=== PATIENT | female | born 1935 | race Caucasian/White ===

== ENCOUNTER → 2016-11-14 | Outpatient (CLI) | payer BC ==
[~2016-11-14] MED LIST: ASPI81TA28 PO; ATV5X PO; EFFSR75 PO; ESZO1TAB21 PO; GLC500 PO; LISI-789 PO; NRN100 PO; OMEP20CA9 PO; SIMV-151 PO; VENL-273 PO
[2016-11-14 10:27] LABS: ALT/SGPT 32 U/L (12-78); AST/SGOT 32 U/L (15-37); BLOOD UREA NITROGEN 21 mg/dl (7-18); BUN/CREATININE RATIO 26.4 (10-20); CALCIUM 8.8 mg/dl (8.5-10.1); CARBON DIOXIDE 31 mmol/L (21-32); CHLORIDE 106 mmol/L (98-107); CREATININE 0.81 mg/dl (0.60-1.20); GLUCOSE 127 mg/dl (70-99); POTASSIUM 4.1 mmol/L (3.5-5.1); SODIUM 140 mmol/L (136-145)
[2016-11-14 10:30] LABS: CHOLESTEROL 173 mg/dl (0-200); CHOLESTEROL/HDL RATIO 2.7; HDL CHOLESTEROL 63 mg/dl; LDL CHOLESTEROL CALCULATED 71 mg/dl; TRIGLYCERIDES 193 mg/dl (0-150); VERY LOW DENSITY LIPOPROT CALC 39 mg/dl
[2016-11-14 10:42] LABS: ESTIMATED AVERAGE GLUCOSE 134 mg/dl; HA1C FLAG Normal (Normal)
== END | disposition home or self-care (01) ==
LOC: C.LAB1850 09:13
PROVIDERS: ATTEND Internal Medicine
DX: E78.5 Hyperlipidemia, unspecified (principal); E11.9 Type 2 diabetes mellitus without complications

== ENCOUNTER → 2017-02-13 | Outpatient (CLI) | payer BC ==
[2017-02-13 10:13] LABS: ESTIMATED AVERAGE GLUCOSE 137 mg/dl; HA1C FLAG Normal (Normal)
[2017-02-13 10:16] LABS: ALT/SGPT 35 U/L (12-78); AST/SGOT 28 U/L (15-37); BLOOD UREA NITROGEN 18 mg/dl (7-18); BUN/CREATININE RATIO 19.4 (10-20); CARBON DIOXIDE 30 mmol/L (21-32); CHLORIDE 107 mmol/L (98-107); CHOLESTEROL 162 mg/dl (0-200); CREATININE 0.93 mg/dl (0.60-1.20); GLUCOSE 115 mg/dl (70-99); SODIUM 143 mmol/L (136-145); TRIGLYCERIDES 96 mg/dl (0-150); VERY LOW DENSITY LIPOPROT CALC 19 mg/dl
[2017-02-13 10:19] LABS: ALKALINE PHOSPHATASE 93 U/L (45-117); CHOLESTEROL/HDL RATIO 2.5; HDL CHOLESTEROL 66 mg/dl; LDL CHOLESTEROL CALCULATED 77 mg/dl
[2017-02-13 10:20] LABS: CALCIUM 9.5 mg/dl (8.5-10.1)
== END | disposition home or self-care (01) ==
LOC: C.LAB1850 08:21
PROVIDERS: ATTEND Internal Medicine
DX: E78.5 Hyperlipidemia, unspecified (principal); E11.9 Type 2 diabetes mellitus without complications; I10 Essential (primary) hypertension

== ENCOUNTER 2017-05-19 14:22 | Emergency (ER) | payer BC ==
[~2017-05-19] VITALS: Ht 154.9 cm; Wt 60.9 kg
[~2017-05-19 14:22] MED LIST changes: -ASPI81TA28 PO; -ATV5X PO; -EFFSR75 PO; -ESZO1TAB21 PO; -GLC500 PO; -LISI-789 PO; -NRN100 PO; -OMEP20CA9 PO; -SIMV-151 PO
[2017-05-19 14:34] VITALS: TEMP 37; Ht 154.9 cm; Wt 60.9 kg
[2017-05-19] MEDS ORDERED: GLC500 PO ×2 (15:14→20:18)
[2017-05-19] MEDS ORDERED: EFFSR75 PO (15:14)
[2017-05-19] MEDS ORDERED: ASPI81TA28 PO (15:14)
--- NOTE | 2017-05-19 15:24 | DIAGNOSTIC IMAGING REPORT ---
CT HEAD WITHOUT CONTRAST (CT) CLINICAL HISTORY: Closed head injury. Bilateral periorbital ecchymosis. COMPARISON STUDY: 05/01/2015 TECHNIQUE: Axial CT of the brain is performed from the vertex to the skull base. IV contrast was not administered for this examination. A dose lowering technique was utilized adhering to the principles of ALARA. CT DOSE: FINDINGS: No intra or extra-axial mass lesions are visualized. There is no CT evidence of acute cortical infarction. There is no evidence of midline shift. There is no acute hemorrhage. No calvarial fractures are visualized. There are patchy white matter hypodensities likely on a small vessel basis. There is no evidence of pathologic ventricular dilatation. There is no evidence of acute sinusitis. There is a frontal scalp hematoma. IMPRESSION: 1. Frontal scalp hematoma 2. No acute intracranial findings. Electronically signed by: Benjamin King M.D. 05/19/2017 3:23 PM Dictated Date/Time: 05/19/2017 3:22 PM
--- NOTE | 2017-05-19 15:27 | DIAGNOSTIC IMAGING REPORT ---
CT FACIAL BONES-MXILLOFAC WITHOUT CT DOSE: 754.72 mGy.cm CLINICAL HISTORY: Facial pain status post head trauma. Bilateral periorbital ecchymosis. COMPARISON STUDY: No previous studies for comparison. TECHNIQUE: Helical images were acquired in the transverse plane. The study was reviewed and analyzed on the independent 3-D workstation. A dose lowering technique was utilized adhering to the principles of ALARA. The pterygoid plates appear intact. The zygomatic arches appear intact. The globes appear intact. There is no evidence of orbital emphysema. The orbital bonilla and floor appear intact. The mandibular condyles appear intact. There is a frontal scalp hematoma. IMPRESSION: No facial fractures identified. Electronically signed by: Benjamin King M.D. 05/19/2017 3:25 PM Dictated Date/Time: 05/19/2017 3:23 PM
--- NOTE | 2017-05-19 15:41 | EMERGENCY ROOM VISIT NOTE ---
ED Visit Note First contact with patient: 14:36 The patient was seen and examined with Johnnie Hutchison PA-C. I agree with the history, physical and findings. Please see the note for disposition and details.
[2017-05-19 16:01] VITALS: BP 139/98; PULSE 86; O2SAT 93
--- NOTE | 2017-05-19 17:00 | EMERGENCY ROOM VISIT NOTE ---
History First contact with patient: 14:36 Chief Complaint: FALL Stated Complaint: FALL, HIT HEAD/FOREHEAD History of Present Illness The patient is a 81 year old female who presents to the Emergency Room with complaints of bruising and swelling around her eyes and forehead region. The patient reports that she fell around 4 AM yesterday morning when her cats got into a fight in her bedroom, and she tried to get up to break up the fight. She reportedly tripped and fell onto her face. She denies any loss of consciousness. She denies any significant headache or neck pain. She denies any other extremity injuries. The patient has had a concussion in the past, but denies any history of intracranial bleed. The patient does take a baby aspirin daily. She did call her family doctor's office, and was instructed to come to the emergency department for further evaluation. The patient rates her overall discomfort a 2 out of 10 on my exam. Tetanus immunization is up-to- date. Review of Systems 10 system review was performed and was negative except for pertinent positives and negatives as indicated in history of present illness Past Medical/Surgical History Medical Problems: (1) Acid reflux (2) Depressed (3) Diabetes (4) Hyperlipidemia (5) Hypertension (6) Shingles (7) Skin problems (8) Stomach problems Family History Cancer Diabetes mellitus FH: gallbladder disease Hypertension Social History Smoking Status: Never Smoker Alcohol Use: none Drug Use: none Marital Status: Housing Status: lives alone Occupation Status: retired Current/Historical Medications Scheduled Aspirin (Aspirin Ec), 81 MG PO DAILY Gabapentin (Gabapentin), 100 MG PO BID Lisinopril (Zestril), 2.5 MG PO DAILY Metformin HCl (Metformin HCl), 500 MG PO QAM Metformin HCl (Metformin HCl), 1,000 MG PO QPM Simvastatin (Simvastatin), 20 MG PO DAILY Venlafaxine Hcl (Effexor Extended Rel), 75 MG PO DAILY Scheduled PRN Eszopiclone (Eszopiclone), 3 MG PO HS PRN for Insomnia Lorazepam (Lorazepam), 0.5 MG PO BID PRN for Anxiety Omeprazole (Prilosec), 20 MG PO BID PRN for Acid Reflux Allergies Coded Allergies: No Known Allergies (Unverified , 05/01/15) Physical Exam Vital Signs Date Time Temp Pulse Resp B/P (MAP) Pulse Ox O2 Delivery O2 Flow Rate FiO2 8/28/17 16:01 86 16 139/98 93 05/19/17 14:34 37.0 107 18 146/69 95 Room Air Pain Rating (0-10): 4.0 Physical Exam CONSTITUTIONAL: Healthy and well nourished. Alert and oriented X 3 with positive affect. GCS 15. Patient does not appear in any acute distress. HEENT: The patient has a small left-sided forehead hematoma without laceration or abrasions. She otherwise has pronounced periorbital ecchymosis with soft tissue edema. Pupils equal, round and reactive. No subconjunctival hemorrhage noted. EOMs are intact without evidence for entrapment. No evidence for hemotympanum. OROPHARYNX: No intraoral trauma noted. NECK: The patient exhibits full active range of motion without discomfort. She only has minimal discomfort to palpation of the left sided cervical musculature without focal tenderness to the central cervical spine. RESPIRATORY: Clear to auscultation bilaterally with no wheezing, crackles, rhonchi or stridor. CARDIOVASCULAR: Regular rate and rhythm with no murmurs, rubs or gallops. GASTROINTESTINAL: Bowel sounds present in all quadrants. Soft and nontender to palpation. MUSCULOSKELETAL: Full range of motion of all joints without discomfort. 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 Patient is able straight leg raise bilaterally. No other trauma is noted to the upper or lower extremities. Distal pulses are intact. INTEGUMENTARY: No rash or other significant dermatologic conditions noted. NEUROLOGIC: Cranial nerves II-XII grossly intact. No focal neurologic deficits noted. Upper and lower extremities are sensory intact. Medical Decision & Procedures ER Provider Diagnostic Interpretation: Noncontrast CT of the head and facial bones does not show any acute intracranial bleed or facial bone fractures. Radiologist reports were reviewed. ED Course Patient history and physical exam were performed. Nurse's notes were reviewed. Vital signs were reviewed and were normal. The patient refused any analgesics. Noncontrast CT of the head and facial bones were normal. The patient was advised of her normal CT studies. She was also seen and examined by Dr. Randall, ED attending physician, who suggested an Jason wrap had been to help prevent any further bleeding in the forehead. The patient was encouraged to continue intermittently applying cool compresses to the forehead and eyes. Ibuprofen or Tylenol as needed for pain. She was encouraged to follow-up with her PCP as needed for management, and return to the emergency department for any developing significant headache, nausea, coordination problems or other concerning symptoms. The patient was happy with plan of care, voiced understanding of all discharge instructions, and denied any significant pain at the time of discharge. Medical Decision Impression Primary Impression: Traumatic hematoma of forehead Additional Impressions: Fall from other slipping, tripping, or stumbling Periorbital hematoma of both eyes Departure Information Dispostion Home / Self-Care Condition GOOD Forms HOME CARE DOCUMENTATION FORM, IMPORTANT VISIT INFORMATION Patient Instructions [employer] Additional Instructions Leave Jason wrap in place for 12-24 hours to help stop possible bleeding in the forehead. Continue to intermittently apply ice to forehead and around the eyes for swelling. Keep head elevated for additional swelling relief. Tylenol 500-1000 mg every 6-8 hours. Do not take more than Tylenol 1000 mg in a 24-hour period. You may also occasionally had Aleve or ibuprofen for additional pain relief if needed. Follow-up with your family doctor as needed for further management. Return to the emergency department for any progressively worsening pain, persistent vomiting, coordination problems or other concerning symptoms. Problem Qualifiers Primary Impression: Traumatic hematoma of forehead Encounter type: initial encounter Qualified Codes: S00.83XA - Contusion of other part of head, initial encounter
[2017-05-19] MEDS ORDERED: LISI-789 PO (20:18)
[2017-05-19] MEDS ORDERED: ATV5X PO (20:18)
[2017-05-19] MEDS ORDERED: OMEP20CA9 PO (20:18)
[2017-05-19] MEDS ORDERED: SIMV-151 PO (20:18)
[2017-05-19] MEDS ORDERED: NRN100 PO (20:18)
[2017-05-19] MEDS ORDERED: ESZO1TAB21 PO (20:18)
== END 2017-05-19 16:02 | disposition home or self-care (01) ==
LOC: C.EDB 14:24 → C.EDD 16:02
DX: S00.83XA Contusion of other part of head, initial encounter (principal); W18.09XA Striking against other object with subsequent fall, initial encounter; Y92.003 Bedroom of unspecified non-institutional (private) residence as the place of occurrence of the external cause; Z79.82 Long term (current) use of aspirin; K21.9 Gastro-esophageal reflux disease without esophagitis; F32.9 Major depressive disorder, single episode, unspecified; E11.9 Type 2 diabetes mellitus without complications; E78.5 Hyperlipidemia, unspecified; I10 Essential (primary) hypertension; Z80.9 Family history of malignant neoplasm, unspecified; Z83.3 Family history of diabetes mellitus; Z82.49 Family history of ischemic heart disease and other diseases of the circulatory system; Z79.899 Other long term (current) drug therapy

== ENCOUNTER → 2017-05-29 | Outpatient (CLI) | payer BC ==
[~2017-05-29] MED LIST changes: +ASPI81TA28 PO; +ATV5X PO; +EFFSR75 PO; +ESZO1TAB21 PO; +GLC500 PO; +LISI-789 PO; +NRN100 PO; +OMEP20CA9 PO; +SIMV-151 PO; -VENL-273 PO
--- NOTE | 2017-05-29 12:52 | DIAGNOSTIC IMAGING REPORT ---
LEFT ANKLE 3 VIEWS CLINICAL HISTORY: Left leg injury. Hematoma. FINDINGS: 3 views of the left ankle are obtained. No prior studies are available for comparison at the time of dictation. The skeletal structures are osteopenic. No fracture is seen. The ankle mortise is intact. There is no joint effusion. A large plantar calcaneal enthesophyte is observed. Mild soft tissue swelling is present in the calf. IMPRESSION: Osteopenia with no radiographic evidence of left ankle fracture. Electronically signed by: Anthony Espino M.D. 05/29/2017 12:51 PM Dictated Date/Time: 05/29/2017 12:49 PM
--- NOTE | 2017-05-29 12:52 | DIAGNOSTIC IMAGING REPORT ---
LEFT TIBIA/FIBULA 2 VIEWS ROUTINE CLINICAL HISTORY: M79.605 Left leg [id number] COMPARISON: 09/02/2016 DISCUSSION: No acute abnormality of the tibia or fibula. Mild deformity of the patella secondary to an old healed fracture. There is no evidence for soft tissue swelling. IMPRESSION: No acute process. The above report was generated using voice recognition software. It may contain grammatical, syntax or spelling errors. Electronically signed by: Derrick Brumfield M.D. 05/29/2017 12:51 PM Dictated Date/Time: 05/29/2017 12:49 PM
== END | disposition home or self-care (01) ==
LOC: C.RAD1850 12:37
PROVIDERS: ATTEND Internal Medicine
DX: M79.605 Pain in left leg (principal); S80.12XA Contusion of left lower leg, initial encounter; X58.XXXA Exposure to other specified factors, initial encounter

== ENCOUNTER → 2017-06-09 | Outpatient (CLI) | payer BC ==
--- NOTE | 2017-06-09 16:08 | MAMMOGRAPHY REPORT ---
BILATERAL DIGITAL SCREENING MAMMOGRAM WITH CAD: 06/09/2017 CLINICAL HISTORY: Routine screening. TECHNIQUE: Bilateral CC and MLO views were obtained. Current study was also evaluated with a Compute r Aided Detection (CAD) system. COMPARISON: Comparison is made to exams dated: 06/06/2016 mammogram, 06/05/2015 mammogram, 06/02/2014 m ammogram, 05/31/2013 mammogram, 05/06/2012 mammogram, and 04/11/2011 mammogram - [facility]ter. BREAST COMPOSITION: The tissue of both breasts is almost entirely fatty. FINDINGS: No suspicious mass, architectural distortion or cluster of microcalcifications is seen. IMPRESSION: ACR BI-RADS CATEGORY 1: NEGATIVE There is no mammographic evidence of malignancy. A 1 year screening mammogram is recommended. The pa tient will receive written notification of the results. Approximately 10% of breast cancers are not detected with mammography. A negative mammographic report should not delay biopsy if a clinically suggestive mass is present. Sheila Shaw M.D. ay/:06/09/2017 14:43:37 [employer]: [place] SUE(R)(M), [facility] letter sent: Normal 1/2 BI-RADS Code: ACR BI-RADS Category 1: Negative
== END | disposition home or self-care (01) ==
LOC: C.MAMM 14:03
PROVIDERS: ATTEND Internal Medicine
DX: Z12.31 Encounter for screening mammogram for malignant neoplasm of breast (principal)

== ENCOUNTER → 2017-08-22 | Outpatient (CLI) | payer BC ==
[2017-08-22 09:34] LABS: BASO % 1.8 %; BASO ABS # 0.09 K/uL (0-0.2); COMPLETE YES; EOS % 3.2 %; HEMATOCRIT 40.5 % (37-47); IG% 0.2 %; LYMPH % 43.2 %; LYMPH ABS # 2.19 K/uL (1.2-3.4); MEAN CELL VOLUME 93.5 fL (80-100); MEAN CORPUSCULAR HEMOGLOBIN 30.9 pg (25-34); MEAN CORPUSCULAR HGB CONC 33.1 g/dl (32-36); MEAN PLATELET VOLUME 10.2 fL (7.4-10.4); MONO % 9.7 %; NEUT % 41.9 %; PLATELET COUNT 246 K/uL (130-400); RED BLOOD COUNT 4.33 M/uL (4.2-5.4); WHITE BLOOD COUNT 5.07 K/uL (4.8-10.8)
[2017-08-22 09:50] LABS: ESTIMATED AVERAGE GLUCOSE 131 mg/dl; HA1C FLAG Normal (Normal)
[2017-08-22 10:26] LABS: BLOOD UREA NITROGEN 18 mg/dl (7-18); BUN/CREATININE RATIO 23.6 (10-20); CALCIUM 8.9 mg/dl (8.5-10.1); CARBON DIOXIDE 29 mmol/L (21-32); CHLORIDE 107 mmol/L (98-107); CREATININE 0.76 mg/dl (0.60-1.20); GLUCOSE 126 mg/dl (70-99); POTASSIUM 4.2 mmol/L (3.5-5.1); SODIUM 140 mmol/L (136-145)
[2017-08-22 10:31] LABS: CHOLESTEROL 158 mg/dl (0-200); CHOLESTEROL/HDL RATIO 2.4; HDL CHOLESTEROL 65 mg/dl; LDL CHOLESTEROL CALCULATED 62 mg/dl; TRIGLYCERIDES 154 mg/dl (0-150); VERY LOW DENSITY LIPOPROT CALC 31 mg/dl
[2017-08-22 10:41] LABS: RATIO 12.7 mcg/mg (0-30.0)
== END | disposition home or self-care (01) ==
LOC: C.LAB1850 08:30
PROVIDERS: ATTEND Internal Medicine
DX: E11.9 Type 2 diabetes mellitus without complications (principal); E78.5 Hyperlipidemia, unspecified; S00.03XA Contusion of scalp, initial encounter; X58.XXXA Exposure to other specified factors, initial encounter

== ENCOUNTER → 2017-11-20 | Outpatient (CLI) | payer BC | END | disposition home or self-care (01) | LOC: C.LAB1850 13:19 | PROVIDERS: ATTEND Physician Assistant | DX: R25.1 Tremor, unspecified (principal) ==

== ENCOUNTER → 2017-12-09 | Outpatient (CLI) | payer BC ==
--- NOTE | 2017-12-09 16:06 | DIAGNOSTIC IMAGING REPORT ---
L KNEE 1 OR 2 VIEWS ROUTINE HISTORY: 82 years-old Female R26.9 Gait [id number] Common peroneal neuropathy of left COMPARISON: Left tibia and fibula radiographs 05/29/2017 TECHNIQUE: 2 views of the left knee FINDINGS: There is a suggested healed remote fracture of the superior patella, unchanged. Small left knee joint effusion. The bones appear mildly demineralized. Mild tricompartmental osteoarthritis. Soft tissues are unremarkable without opaque foreign body. IMPRESSION: Small joint effusion without acute fracture. The above report was generated using voice recognition software. It may contain grammatical, syntax or spelling errors. Electronically signed by: Justino Lai M.D. 12/09/2017 4:05 PM Dictated Date/Time: 12/09/2017 4:03 PM
== END | disposition home or self-care (01) ==
LOC: C.RAD1850 15:53
PROVIDERS: ATTEND Physician Assistant
DX: R26.9 Unspecified abnormalities of gait and mobility (principal); G57.02 Lesion of sciatic nerve, left lower limb; M25.462 Effusion, left knee

== ENCOUNTER 2023-09-11 16:51 | Inpatient (IN) ==
--- NOTE | 2023-09-11 17:10 | ED Triage Note ---
Date of Service September 11, 2023 Provider in Triage Author: Gisela Armenta History of Present Illness This patient was briefly evaluated while in triage. An abbreviated physical exam was performed. This patient is a 87-year-old Female who presents to the ED for evaluation stomach cramps started 0600 yesterday thought she was constipated had a loose BM with blood x 1 weakness, sweats pain persists, but better than it was yesterday Physical Exam GENERAL: NAD CARDIOVASCULAR: RRR RESPIRATORY: CTA ABDOMEN: BS x 4. Diffusely TTP throughout. Initial orders for labs and / or imaging were placed and patient was placed in the waiting area until a bed is available. Please see further documentation for the full ED course.
[2023-09-11 18:08] LABS: Basophils # (auto) 0.06 K/uL (0.00-0.20); Basophils % (auto) 0.5 %; Eosinophils % (auto) 0.8 %; Hematocrit (blood only) 43.6 % (37.0-47.0); Immature Granulocytes # (auto) 0.05 K/uL (0.01-0.20); Immature Granulocytes % (auto) 0.4 %; Lymphocytes # (auto) 1.28 K/uL (1.20-3.40); Lymphocytes % (auto) 10.8 %; Mean Corpuscular Hemoglobin 29.2 pg (25.0-34.0); Mean Corpuscular Hgb Conc 32.1 g/dL (32.0-36.0); Mean Corpuscular Volume 90.8 fL (80.0-100.0); Mean Platelet Volume 9.9 fL (9.4-12.4); Monocytes # (auto) 0.75 K/uL (0.11-0.59); Monocytes % (auto) 6.3 %; Neutrophils # (auto) 9.66 K/uL (1.40-6.50); Neutrophils % (auto) 81.2 %; Platelet Count 241 K/uL (130-400); RDW Coefficient of Variation 13.8 % (11.5-14.5); RDW Standard Deviation 46.2 fL (36.4-46.3)
[2023-09-11 18:20] LABS: Albumin Globulin Ratio 1.5 (0.9-2); Bilirubin,Total 0.4 mg/dl (0.2-1.0); Calcium 9.1 mg/dl (8.6-10.3); Creatinine Clr Calc Pharmacy 40.8 ml/min; Est GFR (African American) 82.9 ml/min; Est GFR (Non-African American) 71.5 ml/min; Globulin 2.6 gm/dl (2.5-4.0); Potassium 4.5 mmol/L (3.5-5.1); Total Protein 6.6 gm/dl (6.0-8.3)
[2023-09-11 18:32] LABS: Prothrombin Time 10.9 Seconds (9.0-12.0)
[2023-09-11] MEDS ORDERED: OPTIRAY 320 500ml IV ONE (20:07)
--- NOTE | 2023-09-11 20:56 | CT Scan Report ---
Exam(s): CT ABDOMEN + PELVIS With Contrast IV Amt: 92 ml opti 320 EXAM: CT Abdomen and Pelvis With Intravenous Contrast CLINICAL HISTORY: Pain and bloody stool. TECHNIQUE: Axial computed tomography images of the abdomen and pelvis with intravenous contrast. Automated exposure control was utilized for the study. A dose lowering technique was utilized adhering to the principles of ALARA. CONTRAST: Patient received 92 ml opti 320 of IV contrast COMPARISON: Abdominal ultrasound 07/24/2017. FINDINGS: Lung bases: Unremarkable. No mass. No consolidation. ABDOMEN: Liver: Unremarkable. No mass. Gallbladder and bile ducts: Unremarkable. No calcified stones. No ductal dilation. Pancreas: Unremarkable. No mass. No ductal dilation. Spleen: Unremarkable. No splenomegaly. Adrenals: Unremarkable. No mass. Kidneys and ureters: Unremarkable. No solid mass. No hydronephrosis. Stomach and bowel: Marked thickening of the wall of the descending colon and to a lesser degree transverse and sigmoid colon. Question a small amount of blush of contrast at the hepatic flexure versus enhancement of the mucosa. No obstruction. PELVIS: Appendix: No findings to suggest acute appendicitis. Bladder: Unremarkable. No mass. Reproductive: Unremarkable as visualized. ABDOMEN and PELVIS: Intraperitoneal space: Unremarkable. No free air. No significant fluid collection. Bones/joints: There are degenerative changes of the spine. No acute fracture. No dislocation. Soft tissues: Unremarkable. Vasculature: Mild atherosclerosis. No abdominal aortic aneurysm. Lymph nodes: Unremarkable. No enlarged lymph nodes. IMPRESSION: Marked thickening of the wall of the descending colon and to a lesser degree transverse and sigmoid colon. Question a small amount of blush of contrast at the hepatic flexure versus enhancement of the mucosa. This could relate to nonspecific colitis with possible active GI bleeding. Communications: Verify Receipt Electronically signed by: Madyson Jacome MD 09/11/23 20:55 PM
--- NOTE | 2023-09-11 21:03 | Emergency Department Note ---
Impression & Plan Acute GI bleeding, Abdominal pain ED Provider Note NAME: KAREN LAU AGE: 87 SEX: F : 1935 ARRIVES VIA: Walk-In INFORMANT: Patient ED PROVIDER(S): Lennox Velasco DO CHIEF COMPLAINT: Abdominal pain HPI: Patient is an 87-year-old female who presents to the ER with past medical history of hypertension, hyperlipidemia, anxiety and diabetes for right lower quadrant abdominal pain which started this morning. Has a history of a C- section and previous appendectomy. She notes with this she has noticed some bright red blood per rectum. She denies any headache or change in vision. No chest pain or shortness of breath. No nausea or vomiting. No black or dark tarry stools. No blood thinners. No other exacerbating or remitting factors. ADDITIONAL HISTORY OBTAINED: Per HPI Chronic Medical/Social Conditions Affecting Care: Per HPI PAST MEDICAL HISTORY:See Below PAST SURGICAL HISTORY:See Below FAMILY HISTORY:See Below SOCIAL HISTORY:See Below HOME MEDICATIONS:See Below ALLERGIES:See Below VITALS:See Below PHYSICAL EXAMINATION: GENERAL: Sitting up in bed, alert, well appearing, well nourished, no distress, non-toxic EYE EXAM: normal conjunctiva. OROPHARYNX:mucous membranes are moist NECK: supple, no nuchal rigidity, no adenopathy, non-tender LUNGS: Clear to auscultation. Normal chest wall mechanics HEART: no murmurs, S1 normal and S2 normal ABDOMEN: abdomen soft, non-tender, normo-active bowel sounds, no masses, no rebound or guarding. UPPER EXTREMITIES: upper extremities are grossly normal. LOWER EXTREMITIES: No pitting edema. NEURO EXAM: Normal sensorium, cranial nerves II-XII grossly intact, normal speech, no gross weakness of arms, no gross weakness of legs. MEDICAL DECISION MAKING: Patient is a 87-year-old female who presents to the ER for the above-stated complaint. IV was established blood was obtained. Labs show mild leukocytosis 11.9 thousand. No significant anemia. INR unremarkable. BMP on LFTs bilirubin was unremarkable. Lipase was normal. CT abdomen pelvis shows questionable blush versus thickening of the bowel wall. This was discussed with Dr. [place] on-call for gastroenterology. He agrees with observation overnight his vitals are stable and hemoglobin is 14. Patient has a complete benign abdominal exam discussed case with [facility] hospitalist BEN for further evaluation management and treatment under Dr. Ravi. Patient has had no GI bleeding since being in the ER. Consults/Care Managements Discussions: Per MDM Triage Nursing notes reviewed. Limited review of prior medical records performed Vital Signs: reviewed and remarkable for HTN Differential diagnosis: Differential diagnosis includes etiologies such as diverticulitis, diverticulosis, AVM, coagulopathy, colitis, inflammatory bowel disease, malignancy, Loni-Chapa tear, esophagitis, peptic ulcer disease, variceal bleed, gastritis, epistaxis, fissure, hemorrhoids, as well as others were entertained. ER treatment provided: See below Diagnostics interpreted by me include EKG and cardiac monitoring as listed below: -Cardiac Monitoring: An order was placed for continuous cardiac monitoring. The monitor shows a rate of 90 with sinus rhythm. -ECG: none -Laboratory studies:Interpreted by me as stated above in MDM and shown below. 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 Essential tremor Gait disturbance Osteoporosis Type 2 diabetes mellitus Vitamin D deficiency Concussion (2014) Herpes zoster (2013) Surgical History S/P dilation and curettage S/P section S/P appendectomy History of oral surgery Family History Father Colorectal cancer Diabetes Mother Hypertension Sister Hypertension Stroke Brother Stroke Social History Smoking Status: Never smoker Hx Alcohol Use: No Hx Substance Use: No Preferred Language: Singaporean Communication Ability: Effective Visual Impairment: No Limitations Hearing Ability: Normal marital status: / current occupational status: retired Feels Safe at Home: Yes Physical Activity Frequency: Does not Exercise Seatbelt Use: always Allergies Allergies Allergy/AdvReac Type Severity Reaction Status Date / Time No Known Allergies Allergy Verified 09/11/23 19:50 Home Meds Home Medications Medication Instructions Recorded Confirmed blood-glucose meter (Accu-Chek #1 ea 07/15/19 08/29/23 Rafaela Plus Meter) venlafaxine 150 mg 150 mg PO DAILY 04/03/22 09/11/23 capsule,extended release 24 hr gabapentin 100 mg capsule 100 mg PO TID 08/29/23 09/11/23 Immune Health Support 1 dose PO DAILY 09/11/23 09/11/23 Lactobacil.acidophilus-Bifido.animalis 1 cap PO DAILY 09/11/23 09/11/23 5 billion cell sprinkle capsule (Probiotic) acetaminophen 500 mg tablet 1,000 mg PO DIRECTED PRN Pain 09/11/23 09/11/23 (Tylenol Extra Strength) eszopiclone 1 mg tablet 0.5 - 1 mg PO HS PRN Insomnia 09/11/23 09/11/23 lorazepam 0.5 mg tablet 0.25 - 0.5 mg PO BID PRN Anxiety 09/11/23 09/11/23 multivitamin 1 tab PO DAILY 09/11/23 09/11/23 omeprazole 20 mg capsule,delayed 20 mg PO DAILY PRN 09/11/23 09/11/23 release HEARTBURN/INDIGESTION Previous Rx's Medication Instructions Recorded blood sugar diagnostic (Accu-Chek #200 ea 08/21/22 Rafaela Plus test strips) lancets (Accu-Chek Fastclix Lancet #300 ea 08/21/22 Drum) simvastatin 20 mg tablet 20 mg PO DAILY #90 tabs 08/21/22 metformin 500 mg tablet 500 mg PO .COMPLEX #270 tabs 08/11/23 lisinopril 2.5 mg tablet 2.5 mg PO DAILY #90 tabs 09/08/23 Results & Data (ED) Vital Signs Vital Signs - 24 hr 09/11/23 17:09 09/11/23 19:01 09/11/23 19:02 Temperature 36.5 C Temperature Source Temporal Artery Scan Pulse Rate 107 H 104 H 101 H Pulse Rate from SpO2 Sensor 101 H Pulse Rhythm Regular Pulse Strength Normal Respiratory Rate 18 16 Respiratory Effort / Characteristics Non-Labored Spontaneous Respiratory Depth Normal Respiratory Pattern Regular Blood Pressure 159/70 H Blood Pressure Mean 99 Blood Pressure Position Sitting Pulse Oximetry 98 98 Oxygen Delivery Method Room Air Sepsis Recent Fever Within 48 Hours No Sepsis New/Unexplained Change in Mental Status No Sepsis Action Taken by Nursing No Action Required 09/11/23 19:10 09/11/23 19:20 09/11/23 19:30 Temperature Temperature Source Pulse Rate 94 H 92 H 94 H Pulse Rate from SpO2 Sensor 94 H 92 H 94 H Pulse Rhythm Pulse Strength Respiratory Rate 15 15 16 Respiratory Effort / Characteristics Respiratory Depth Respiratory Pattern Blood Pressure Blood Pressure Mean Blood Pressure Position Pulse Oximetry 97 96 97 Oxygen Delivery Method Sepsis Recent Fever Within 48 Hours Sepsis New/Unexplained Change in Mental Status Sepsis Action Taken by Nursing 09/11/23 19:30 09/11/23 19:40 09/11/23 19:43 Temperature Temperature Source Pulse Rate 90 Pulse Rate from SpO2 Sensor 90 Pulse Rhythm Pulse Strength Respiratory Rate 15 Respiratory Effort / Characteristics Respiratory Depth Respiratory Pattern Blood Pressure 157/78 H Blood Pressure Mean 121 Blood Pressure Position Pulse Oximetry 98 100 Oxygen Delivery Method Room Air Sepsis Recent Fever Within 48 Hours Sepsis New/Unexplained Change in Mental Status Sepsis Action Taken by Nursing 09/11/23 19:50 09/11/23 20:11 09/11/23 20:20 Temperature Temperature Source Pulse Rate 91 H 103 H 90 Pulse Rate from SpO2 Sensor 91 H 90 Pulse Rhythm Pulse Strength Respiratory Rate 18 13 16 Respiratory Effort / Characteristics Respiratory Depth Respiratory Pattern Blood Pressure Blood Pressure Mean Blood Pressure Position Pulse Oximetry 97 96 Oxygen Delivery Method Sepsis Recent Fever Within 48 Hours Sepsis New/Unexplained Change in Mental Status Sepsis Action Taken by Nursing 09/11/23 20:30 09/11/23 20:30 09/11/23 20:40 Temperature Temperature Source Pulse Rate 88 85 Pulse Rate from SpO2 Sensor 88 86 Pulse Rhythm Pulse Strength Respiratory Rate 16 17 Respiratory Effort / Characteristics Respiratory Depth Respiratory Pattern Blood Pressure 168/73 H Blood Pressure Mean 103 Blood Pressure Position Pulse Oximetry 96 95 Oxygen Delivery Method Sepsis Recent Fever Within 48 Hours Sepsis New/Unexplained Change in Mental Status Sepsis Action Taken by Nursing 09/11/23 20:50 09/11/23 21:00 09/11/23 21:00 Temperature Temperature Source Pulse Rate 86 88 Pulse Rate from SpO2 Sensor 87 91 H Pulse Rhythm Pulse Strength Respiratory Rate 20 16 Respiratory Effort / Characteristics Respiratory Depth Respiratory Pattern Blood Pressure 162/79 H Blood Pressure Mean 103 Blood Pressure Position Pulse Oximetry 95 94 Oxygen Delivery Method Room Air Sepsis Recent Fever Within 48 Hours Sepsis New/Unexplained Change in Mental Status Sepsis Action Taken by Nursing 09/11/23 21:10 09/11/23 21:20 09/11/23 21:30 Temperature Temperature Source Pulse Rate 88 89 93 H Pulse Rate from SpO2 Sensor 88 89 97 H Pulse Rhythm Pulse Strength Respiratory Rate 17 18 16 Respiratory Effort / Characteristics Respiratory Depth Respiratory Pattern Blood Pressure Blood Pressure Mean Blood Pressure Position Pulse Oximetry 94 94 98 Oxygen Delivery Method Sepsis Recent Fever Within 48 Hours Sepsis New/Unexplained Change in Mental Status Sepsis Action Taken by Nursing 09/11/23 21:30 09/11/23 21:40 09/11/23 21:50 Temperature Temperature Source Pulse Rate 93 H 91 H Pulse Rate from SpO2 Sensor 97 H 92 H Pulse Rhythm Pulse Strength Respiratory Rate 18 15 Respiratory Effort / Characteristics Respiratory Depth Respiratory Pattern Blood Pressure 164/91 H Blood Pressure Mean 134 Blood Pressure Position Pulse Oximetry 97 95 Oxygen Delivery Method Room Air Sepsis Recent Fever Within 48 Hours Sepsis New/Unexplained Change in Mental Status Sepsis Action Taken by Nursing 09/11/23 22:00 09/11/23 22:00 09/11/23 22:10 Temperature Temperature Source Pulse Rate 96 H 90 Pulse Rate from SpO2 Sensor 96 H 90 Pulse Rhythm Pulse Strength Respiratory Rate 20 16 Respiratory Effort / Characteristics Respiratory Depth Respiratory Pattern Blood Pressure 170/89 H Blood Pressure Mean 114 Blood Pressure Position Pulse Oximetry 93 94 Oxygen Delivery Method Sepsis Recent Fever Within 48 Hours Sepsis New/Unexplained Change in Mental Status Sepsis Action Taken by Nursing 09/11/23 22:20 09/11/23 22:30 09/11/23 22:30 Temperature Temperature Source Pulse Rate 93 H 97 H Pulse Rate from SpO2 Sensor 93 H 95 H Pulse Rhythm Pulse Strength Respiratory Rate 16 19 Respiratory Effort / Characteristics Respiratory Depth Respiratory Pattern Blood Pressure 151/88 H Blood Pressure Mean 126 Blood Pressure Position Pulse Oximetry 94 93 Oxygen Delivery Method Room Air Sepsis Recent Fever Within 48 Hours Sepsis New/Unexplained Change in Mental Status Sepsis Action Taken by Nursing 09/11/23 22:40 09/11/23 22:49 09/11/23 22:50 Temperature Temperature Source Pulse Rate 92 H 98 H 92 H Pulse Rate from SpO2 Sensor 92 H 93 H Pulse Rhythm Pulse Strength Respiratory Rate 22 24 Respiratory Effort / Characteristics Respiratory Depth Respiratory Pattern Blood Pressure Blood Pressure Mean Blood Pressure Position Pulse Oximetry 93 94 Oxygen Delivery Method Room Air Sepsis Recent Fever Within 48 Hours Sepsis New/Unexplained Change in Mental Status Sepsis Action Taken by Nursing Laboratory Data 09/11/23 17:46 09/11/23 17:46 Lab Results 09/11/23 Range/Units 17:46 WBC 11.90 H (4.8-10.8) K/ul RBC 4.80 (4.20-5.40) M/uL Hgb 14.0 (12.0-16.0) g/dl Hct 43.6 (37.0-47.0) % MCV 90.8 (80.0-100.0) fL MCH 29.2 (25.0-34.0) pg MCHC 32.1 (32.0-36.0) g/dL RDW Std Deviation 46.2 (36.4-46.3) fL RDW Coeff of Astrid 13.8 (11.5-14.5) % Plt Count 241 (130-400) K/uL MPV 9.9 (9.4-12.4) fL Immature Gran % (Auto) 0.4 % Neut % (Auto) 81.2 % Lymph % (Auto) 10.8 % [place] % (Auto) 6.3 % Eos % (Auto) 0.8 % Baso % (Auto) 0.5 % Neut # (Auto) 9.66 H (1.40-6.50) K/uL Lymph # (Auto) 1.28 (1.20-3.40) K/uL [place] # (Auto) 0.75 H (0.11-0.59) K/uL Eos # (Auto) 0.10 (0.00-0.50) K/uL Baso # (Auto) 0.06 (0.00-0.20) K/uL Immature Gran # (Auto) 0.05 (0.01-0.20) K/uL PT 10.9 (9.0-12.0) Seconds INR 1.0 (0.9-1.1) Sodium 139 (136-145) mmol/L Potassium 4.5 (3.5-5.1) mmol/L Chloride 105 (98-107) mmol/L Carbon Dioxide 29 (21-32) mmol/L Anion Gap 5 (3-11) BUN 19 (6-23) mg/dl Creatinine 0.76 (0.6-1.2) mg/dl Est Cr Clr Drug Dosing 40.8 ml/min Est GFR ( Amer) 82.9 ml/min Est GFR (Non-Af Amer) 71.5 ml/min BUN/Creatinine Ratio 25.0 H (10-20) Glucose 209 H (70-99(Fasting)) mg/dl Calcium 9.1 (8.6-10.3) mg/dl Total Bilirubin 0.4 (0.2-1.0) mg/dl AST 24 (13-39) U/L ALT 17 (7-52) U/L Alkaline Phosphatase 79 (34-104) U/L Total Protein 6.6 (6.0-8.3) gm/dl Albumin 4.0 (3.4-5.0) gm/dl Globulin 2.6 (2.5-4.0) gm/dl Albumin/Globulin Ratio 1.5 (0.9-2) Lipase 55 (11-82) U/L Administered Medications Pantoprazole Sodium 40 mg/ (Syringe) 10 mls @ 5 mls/min IV BID MULUGETA Stop: 10/11/23 22:14 Last Admin: 09/11/23 22:42 Dose: 5 mls/min Documented By: EARLENE Lactated Ringer's (Lr) 1,000 mls @ 100 mls/hr IV .Q10H MULUGETA Stop: 09/12/23 18:14 Last Admin: 09/11/23 22:23 Dose: 100 mls/hr Documented By: EARLENE Discontinued Medications Acetaminophen (Ofirmev) 1,000 mg in 100 mls @ 400 mls/hr IV NOW STA Stop: 09/11/23 22:19 Last Admin: 09/11/23 22:25 Dose: 400 mls/hr Documented By: EARLENE Ioversol (Optiray 320 500ml) 92 ml IV ONCE ONE Stop: 09/11/23 20:08 Last Admin: 09/11/23 20:07 Dose: 92 ml Documented By: FLIP Imaging Data Radiologist's Impression: Abdomen/Pelvis CT 09/11/23 17:11 CR Exam(s): CT ABDOMEN + PELVIS With Contrast IV Amt: 92 ml opti 320 EXAM: CT Abdomen and Pelvis With Intravenous Contrast CLINICAL HISTORY: Pain and bloody stool. TECHNIQUE: Axial computed tomography images of the abdomen and pelvis with intravenous contrast. Automated exposure control was utilized for the study. A dose lowering technique was utilized adhering to the principles of ALARA. CONTRAST: Patient received 92 ml opti 320 of IV contrast COMPARISON: Abdominal ultrasound 07/24/2017. FINDINGS: Lung bases: Unremarkable. No mass. No consolidation. ABDOMEN: Liver: Unremarkable. No mass. Gallbladder and bile ducts: Unremarkable. No calcified stones. No ductal dilation. Pancreas: Unremarkable. No mass. No ductal dilation. Spleen: Unremarkable. No splenomegaly. Adrenals: Unremarkable. No mass. Kidneys and ureters: Unremarkable. No solid mass. No hydronephrosis. Stomach and bowel: Marked thickening of the wall of the descending colon and to a lesser degree transverse and sigmoid colon. Question a small amount of blush of contrast at the hepatic flexure versus enhancement of the mucosa. No obstruction. PELVIS: Appendix: No findings to suggest acute appendicitis. Bladder: Unremarkable. No mass. Reproductive: Unremarkable as visualized. ABDOMEN and PELVIS: Intraperitoneal space: Unremarkable. No free air. No significant fluid collection. Bones/joints: There are degenerative changes of the spine. No acute fracture. No dislocation. Soft tissues: Unremarkable. Vasculature: Mild atherosclerosis. No abdominal aortic aneurysm. Lymph nodes: Unremarkable. No enlarged lymph nodes. IMPRESSION: Marked thickening of the wall of the descending colon and to a lesser degree transverse and sigmoid colon. Question a small amount of blush of contrast at the hepatic flexure versus enhancement of the mucosa. This could relate to nonspecific colitis with possible active GI bleeding. Communications: Verify Receipt Electronically signed by: Madyson Jacome MD 09/11/23 20:55 PM Discharge Plan Visit Data Chief Complaint: Abdominal Pain Stated Complaint: ABD PAIN ED Provider: Lennox Velasco Discharge Problem: Acute GI bleeding, Abdominal pain Forms Stand Alone Forms: [facility] [place] Prescriptions Prescriptions: No Action (DME) blood-glucose meter [Accu-Chek Rafaela Plus Meter] [facility] See Dose Instructions .ROUTE .MEDSUPPLY Qty: 1 Rx Instructions: use to test twice daily metformin 500 mg tablet 500 mg PO .COMPLEX Qty: 270 3RF Rx Instructions: 500 mg PO Take one tablet in the morning and two tabs with evening meal; lisinopril 2.5 mg tablet 2.5 mg PO DAILY Qty: 90 3RF gabapentin 100 mg capsule 100 mg PO TID (DME) Accu-Chek Rafaela Plus test strp Strip See Dose Instructions .ROUTE .MEDSUPPLY Qty: 200 3RF Dose Instruction: As directed Rx Instructions: test twice daily simvastatin 20 mg tablet 20 mg PO DAILY Qty: 90 3RF (DME) lancets [Accu-Chek Fastclix Lancet Drum] Misc See Rx Instructions .Route Qty: 300 3RF Rx Instructions: use to check blood sugars up to three times daily venlafaxine 150 mg capsule,extended release 24hr 150 mg PO DAILY multivitamin Tablet 1 tab PO DAILY acetaminophen [Tylenol Extra Strength] 500 mg Tablet 1,000 mg PO DIRECTED PRN (Reason: Pain) lorazepam 0.5 mg tablet 0.25 - 0.5 mg PO BID PRN (Reason: Anxiety) eszopiclone 1 mg tablet 0.5 - 1 mg PO HS PRN (Reason: Insomnia) Probiotic 5 billion cell Capsule, Sprinkle 1 cap PO DAILY Immune Health Support 1 dose PO DAILY Rx Instructions: VITAMIN C, D & ZINC omeprazole 20 mg capsule,delayed release(DR/EC) 20 mg PO DAILY PRN (Reason: HEARTBURN/INDIGESTION) Referrals Referrals: Frankie Solomon MD [Primary Care Provider] - Discharge Problem: Abdominal pain Qualifiers: Abdominal location: unspecified location Qualified Code(s): R10.9 - Unspecified abdominal pain
--- NOTE | 2023-09-11 21:21 | History & Physical Report ---
Date of Service September 11, 2023 Assessment & Plan (1) Bloody diarrhea: Plan: Bloody diarrhea x 1 the morning of 09/11 Patient reports she took aspirin the morning of 09/11 after waking up and feeling abdominal cramping, dizziness, sweating; she was concerned she was having a stroke; no hx of stroke, but family hx of stroke No hx of IBS, Crohn's, UC, lactose intolerance, or food allergies Hx of hemorrhoids when , but patient does not believe she has had any recently Patient was taking Aleve 1-2 tabs daily for her sciatica last month, but has not taken any in the past 2-3 weeks Abdomen/pelvic CT revealed nonspecific colitis with possible active GI bleeding H&H WNL at 14.0 and 43.6, respectively Clinically, patient endorses mild abdominal cramping and some anxiety Keep n.p.o. for now Protonix 40 mg IV twice daily Tylenol 1000 mg IV given in the ED Continue fluid resuscitation with LR at 100ml/hr x2 Mild leukocytosis at 11.90 with a neutrophil predominant Stool GI PCR panel ordered, pending; will defer antibiotics until E. coli 0157 is determined to be negative Gastroenterology consulted A.m. CBC, BMP (2) Anxiety disorder: Plan: Patient reports she has been having increased anxiety this upcoming week; she was set to fly to [place] to visit her daughter on 09/12; has not seen her daughter in 4 years Hold home lorazepam Lorazepam 0.5 mg IV q8h as needed for anxiety (3) GERD (gastroesophageal reflux disease): Plan: Hold home omeprazole Protonix (as above) (4) Type 2 diabetes mellitus: Plan: Last A1c 6.7% on 08/18/2023; no need to repeat Glucose 209 on arrival Hold metformin BSG every 6 hours while NPO Keep n.p.o. for now then adjust to T2DM diet as tolerated Loose SSI while inpatient; goal target range 120403gd/dL, CF 60, carb ratio 20 BSG ACHS once eating Adjust regimen as needed (5) Essential tremor: Plan: Can give gabapentin if cleared by GI (6) Depression: Plan: Can continue venlafaxine if cleared by GI (7) Hyperlipidemia: Plan: Hold simvastatin Plan Disposition: Obs - Admit to [facility] telemetry Full code Keep n.p.o. for now VTE PPx: SCDs (hold chemical DVT PPx for now) History of Present Illness Chief Complaint: Abdominal pain Primary Care Provider: Frankie Solomon MD Claire is a pleasant 87-year-old female with PMH of T2DM, osteoporosis, essential tremor, anxiety, depression, DJD of the lumbar spine, insomnia, HLD, HTN, Raynaud's, and GERD. She presented for feelings of dizziness, sweating, and abdominal cramping the morning of 09/11, followed by an episode of bloody diarrhea x 1 on the afternoon of 09/11. Patient is not on blood thinners. She described the stool as liquidy, with bright red blood and possible dark red clots. She is not having abdominal pain at present, but endorses abdominal cramping which she rates 3/10 across the lower quadrants bilaterally. No radiation. She reports that she took an aspirin this morning over concern for a stroke. She said she was feeling dizzy, and sweating so she laid down on the ground. She has a family history of stroke, but has never had one personally. No facial droop, slurred speech, or unilateral deficits appreciated by the patient (or on physical exam). No history of IBS, Crohn's, UC, lactose intolerance, or food allergies. No recent changes in diet. No recent antibiotic use. Patient was recently taking Aleve tablet for her sciatica (1- 2/day), but reports she has not taken them in the past 2-3 weeks. Patient lives alone. No recent falls. History of several concussions. History of hemorrhoids when she was , but she does not think that she currently has them or that they are contributing. Patient reports she only had some tea and toast this morning. No laxative use. No tick bites. No recent travel. No recent camping. No past experiences of blood in the stool such as this. She denies having pain after eating. She took all of her regular morning medications. Patient exhibits hypertension at 164/91 at time of admission. ROS: Patient endorses sweating (this morning), dizziness (this morning), constipation (ongoing), and bloody diarrhea. Patient denies fevers, BUCK, joint achiness, facial droop, slurred speech, chest pain, chest palpitations, SOB, cough, N/V, burning with urination, dysuria, sad dle anesthesia, or numbness/tingling in legs. Past abdominal surgeries include a where her appendix was taken out. Allergies Allergy/AdvReac Type Severity Reaction Status Date / Time No Known Allergies Allergy Verified 09/11/23 19:50 Home Medications Medication Instructions Recorded Confirmed Type blood-glucose meter (Accu-Chek #1 ea 07/15/19 08/29/23 History Rafaela Plus Meter) venlafaxine 150 mg 150 mg PO DAILY 04/03/22 09/11/23 History capsule,extended release 24 hr blood sugar diagnostic (Accu-Chek #200 ea 08/21/22 08/29/23 Rx Rafaela Plus test strips) lancets (Accu-Chek Fastclix Lancet #300 ea 08/21/22 08/29/23 Rx Drum) simvastatin 20 mg tablet 20 mg PO DAILY #90 tabs 08/21/22 09/11/23 Rx metformin 500 mg tablet 500 mg PO .COMPLEX #270 tabs 08/11/23 09/11/23 Rx gabapentin 100 mg capsule 100 mg PO TID 08/29/23 09/11/23 History lisinopril 2.5 mg tablet 2.5 mg PO DAILY #90 tabs 09/08/23 09/11/23 Rx Immune Health Support 1 dose PO DAILY 09/11/23 09/11/23 History Lactobacil.acidophilus-Bifido.animalis 1 cap PO DAILY 09/11/23 09/11/23 History 5 billion cell sprinkle capsule (Probiotic) acetaminophen 500 mg tablet 1,000 mg PO DIRECTED PRN Pain 09/11/23 09/11/23 History (Tylenol Extra Strength) eszopiclone 1 mg tablet 0.5 - 1 mg PO HS PRN Insomnia 09/11/23 09/11/23 History lorazepam 0.5 mg tablet 0.25 - 0.5 mg PO BID PRN Anxiety 09/11/23 09/11/23 History multivitamin 1 tab PO DAILY 09/11/23 09/11/23 History omeprazole 20 mg capsule,delayed 20 mg PO DAILY PRN 09/11/23 09/11/23 History release HEARTBURN/INDIGESTION Past Med/Surg History Medical History (Updated 09/11/23 @ 23:07 by Lennox Velasco DO) Fracture of left patella Raynaud's disease Mixed conductive and sensorineural hearing loss of right ear with restricted hearing of left ear Insomnia Degenerative joint disease (DJD) of lumbar spine Chronic otitis externa Adenomatous polyp of colon Anxiety disorder Common peroneal neuropathy of left lower extremity Essential tremor Gait disturbance Osteoporosis Type 2 diabetes mellitus Vitamin D deficiency Concussion (2014) Herpes zoster (2013) Surgical History S/P dilation and curettage S/P section S/P appendectomy History of oral surgery Family History Father Colorectal cancer Diabetes Mother Hypertension Sister Hypertension Stroke Brother Stroke Social History Smoking Status: Never smoker Hx Alcohol Use: Yes Hx Substance Use: No Preferred Language: Amharic Communication Ability: Effective Visual Impairment: No Limitations Hearing Ability: Normal 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: No Beliefs That Will Affect Care: None marital status: / Current Living Situation: Alone Current Living Situation Comment: home with cat current occupational status: retired Other Information That Helps Us Care for You: No Feels Safe at Home: Yes Safety Concerns: Feels Safe At This Time Physical Activity Frequency: Does not Exercise Seatbelt Use: always Assistive Devices: None Review of Systems Review of Systems: See HPI above Physical Exam Physical Exam: General: no acute distress; anxious; non-toxic appearing; well-nourished; cooperative HEENT: normocephalic, atraumatic; no scleral icterus; PERRLA w/ EOMs intact; moist mucus membrane; vision and hearing grossly intact Neck: supple; no lymphadenopathy; trachea midline Skin: warm, dry without signs of tenting; no cyanosis; no rashes, bruising, lesions, or erythema noted CV: chest wall NTP; RRR; S1/S2 normal; no murmurs/rubs/gallops; pulses intact and symmetric at radial, DP, and PT Lungs: no acute respiratory distress; symmetrical chest wall expansion; clear breath sounds across all lung camara w/o adventitious sounds; no wheezing ABD: Soft; RUQ TTP; BS present; no rebound/guarding; mild distention; negative psoas sign; negative Rovsing sign; no rashes or bruising on the abdomen MSK: no tics or fasciculations; no edema noted in the LEs b/l Neuro: A&Ox3; normal mood and affect; fluent speech; no facial droop; no focal deficits; sensation grossly intact in the LEs B/L Results & Data Results & Data Vital Signs (Past 12 Hours) Vital Signs Temp Pulse Resp BP Pulse Ox O2 Del Method 09/11/23 21:00 162/79 H 09/11/23 21:00 88 16 94 Room Air 09/11/23 20:50 86 20 95 09/11/23 20:40 85 17 95 09/11/23 20:30 88 16 96 09/11/23 20:30 168/73 H 09/11/23 20:20 90 16 96 09/11/23 20:11 103 H 13 09/11/23 19:50 91 H 18 97 09/11/23 19:43 100 Room Air 09/11/23 19:40 90 15 98 09/11/23 19:30 157/78 H 09/11/23 19:30 94 H 16 97 09/11/23 19:20 92 H 15 96 09/11/23 19:10 94 H 15 97 09/11/23 19:02 101 H 16 98 09/11/23 19:01 104 H 09/11/23 17:09 36.5 C 107 H 18 159/70 H 98 Room Air Laboratory Results Abnormal lab results 09/11/23 Range/Units 17:46 WBC 11.90 H (4.8-10.8) K/ul Neut # (Auto) 9.66 H (1.40-6.50) K/uL Phillips # (Auto) 0.75 H (0.11-0.59) K/uL BUN/Creatinine Ratio 25.0 H (10-20) Glucose 209 H (70-99(Fasting)) mg/dl Diagnostic Findings Abdomen/Pelvis CT 09/11/23 17:11 CR Exam(s): CT ABDOMEN + PELVIS With Contrast IV Amt: 92 ml opti 320 EXAM: CT Abdomen and Pelvis With Intravenous Contrast CLINICAL HISTORY: Pain and bloody stool. TECHNIQUE: Axial computed tomography images of the abdomen and pelvis with intravenous contrast. Automated exposure control was utilized for the study. A dose lowering technique was utilized adhering to the principles of ALARA. CONTRAST: Patient received 92 ml opti 320 of IV contrast COMPARISON: Abdominal ultrasound 07/24/2017. FINDINGS: Lung bases: Unremarkable. No mass. No consolidation. ABDOMEN: Liver: Unremarkable. No mass. Gallbladder and bile ducts: Unremarkable. No calcified stones. No ductal dilation. Pancreas: Unremarkable. No mass. No ductal dilation. Spleen: Unremarkable. No splenomegaly. Adrenals: Unremarkable. No mass. Kidneys and ureters: Unremarkable. No solid mass. No hydronephrosis. Stomach and bowel: Marked thickening of the wall of the descending colon and to a lesser degree transverse and sigmoid colon. Question a small amount of blush of contrast at the hepatic flexure versus enhancement of the mucosa. No obstruction. PELVIS: Appendix: No findings to suggest acute appendicitis. Bladder: Unremarkable. No mass. Reproductive: Unremarkable as visualized. ABDOMEN and PELVIS: Intraperitoneal space: Unremarkable. No free air. No significant fluid collection. Bones/joints: There are degenerative changes of the spine. No acute fracture. No dislocation. Soft tissues: Unremarkable. Vasculature: Mild atherosclerosis. No abdominal aortic aneurysm. Lymph nodes: Unremarkable. No enlarged lymph nodes. IMPRESSION: Marked thickening of the wall of the descending colon and to a lesser degree transverse and sigmoid colon. Question a small amount of blush of contrast at the hepatic flexure versus enhancement of the mucosa. This could relate to nonspecific colitis with possible active GI bleeding. Communications: Verify Receipt Electronically signed by: Madyson Jacome MD 09/11/23 20:55 PM Code Status & VTE Plan Code Status Full code VTE Prophylaxis Plan VTE Prophylaxis will be ordered: Yes Supervising Physician Co-Signing Physician Notes Attending addendum: I have physically seen this patient, have supervised the WENDY's activities, and agree with the H&P unless as otherwise noted. Assessment and Plan: Bloody diarrhea/nonspecific colitis- CT of abdomen and pelvis shows colitis involving the ascending, transverse and sigmoid colon Pantoprazole 40 mg IV daily N.p.o. Acetaminophen 1 g IV every 8 hours as needed mild pain or fever LR at 100 mls per hour x 2 additional liters Order stool PCR Consult gastroenterology Follow serial CBC with differential and chemistry profile Anxiety- Hold oral lorazepam (0.5 mg IV every 8 hours as needed for anxiety GERD- Holding omeprazole and changed to pantoprazole IV as noted Diabetes mellitus- N.p.o. as noted Holding metformin Accu-Cheks with [facility] PG Care Time/CCT Total # of Minutes Spent Total Time Spent with Patient: Total time spent is greater than 50% in coordination of care (as documented) at patient's floor/unit and/or counseling patient: Coding [place] [address] INT INP/OBS CARE 1MIN Patient Type Established Medical Decision Making Low Complexity Diagnoses Bloody diarrhea R19.7 Anxiety disorder F41.9 GERD (gastroesophageal reflux disease) K21.9 Type 2 diabetes mellitus E11.9 Essential tremor G25.0 Depression F32.9 Hyperlipidemia E78.5
[2023-09-11] MEDS ORDERED: ACETAMINOPHEN 1,000 MG/100 ML VIAL IV STA (22:05)
[2023-09-11] MEDS: LACTATED RINGER'S 1,000 ML IV SCH (22:23)
[2023-09-11] MEDS: PANTOprazole 40 MG in SYRINGE 0 ML IV SCH (22:42)
[2023-09-12] MEDS ORDERED: CARBOHYDRATES FOR HYPOGLYCEMIA PO PRN (00:10)
[2023-09-12] MEDS ORDERED: DEXTROSE 50% 50 ML SYRINGE IV PRN (00:10)
[2023-09-12] MEDS ORDERED: LORazepam 0.5 MG in SYRINGE 0.25 ML IV PRN (00:10)
[2023-09-12] MEDS ORDERED: GLUCOSE 40% GEL 15 GM TUBE PO PRN (00:10)
[2023-09-12] MEDS ORDERED: GLUCAGON FOR INJ 1 MG VIAL SQ PRN (00:10)
[2023-09-12] MEDS ORDERED: GLUCOSE 10 TAB/TUBE PO PRN (00:10)
[2023-09-12 06:11] LABS: Basophils # (auto) 0.07 K/uL (0.00-0.20); Basophils % (auto) 0.5 %; Eosinophils # (auto) 0.14 K/uL (0.00-0.50); Eosinophils % (auto) 1.1 %; Hematocrit (blood only) 39.6 % (37.0-47.0); Hemoglobin 12.8 g/dl (12.0-16.0); Immature Granulocytes # (auto) 0.04 K/uL (0.01-0.20); Immature Granulocytes % (auto) 0.3 %; Lymphocytes # (auto) 1.82 K/uL (1.20-3.40); Lymphocytes % (auto) 14.3 %; Mean Corpuscular Hemoglobin 29.5 pg (25.0-34.0); Mean Corpuscular Hgb Conc 32.3 g/dL (32.0-36.0); Mean Corpuscular Volume 91.2 fL (80.0-100.0); Mean Platelet Volume 9.8 fL (9.4-12.4); Monocytes # (auto) 1.02 K/uL (0.11-0.59); Neutrophils # (auto) 9.65 K/uL (1.40-6.50); Neutrophils % (auto) 75.8 %; Platelet Count 209 K/uL (130-400); RDW Coefficient of Variation 13.9 % (11.5-14.5); RDW Standard Deviation 46.7 fL (36.4-46.3); Red Blood Count 4.34 M/uL (4.20-5.40); White Blood Count 12.74 K/ul (4.8-10.8)
[2023-09-12 06:20] LABS: BUN Creatinine Ratio 21.3 (10-20); Calcium 8.6 mg/dl (8.6-10.3); Creatinine Clr Calc Pharmacy 41.4 ml/min; Est GFR (African American) 84.2 ml/min; Est GFR (Non-African American) 72.7 ml/min; Potassium 4.6 mmol/L (3.5-5.1)
[2023-09-12] MEDS: INSULIN ASPART PER UNIT CHARGE SC SCH ×5 (06:21→20:48)
[2023-09-12] MEDS ORDERED: ACETAMINOPHEN 1,000 MG/100 ML VIAL IV STA (07:49)
[2023-09-12] MEDS: PANTOprazole 40 MG in SYRINGE 0 ML IV SCH ×2 (08:10→20:47)
[2023-09-12] MEDS: LACTATED RINGER'S 1,000 ML IV SCH ×2 (09:45→20:46)
--- NOTE | 2023-09-12 09:50 | Gastrointestinal Consultation ---
Date of Consultation September 12, 2023 Assessment & Plan (1) Abdominal pain: (2) Bloody diarrhea: Plan Patient admitted for new onset abdominal pain with diarrhea with rectal bleeding x 1 day. she has not had any further bowel movements since yesterday. she feels abdominal pain is well controlled. Discussed case with Dr. Burgos who helped advise on plan. Suspect that this may be something transient. I did call to speak with her son Nicola ([phone]) at her request. Informed him of hospital course thus far and plan to await stool studies and see how she does with advancing diet. - await stool studies. - monitor labs. - can give her some clears at this time to trial. - no plans for endoscopic evaluation at this time. - recommend supportive care. Supervising Physician Co-Signing Physician Notes I saw the patient and agree with the findings as documented by KINGA Beck History of Present Illness Reason for Consultation: Colitis, GIB Requesting Physician: Porfirio Mcclain PA-C Attending Physician: Edu Collazo MD History of Present Illness Patient is an 87 year old female with a past medical history of T2DM, osteoporosis, essential tremor, anxiety, depression, DJD of the lumbar spine, insomnia, HLD, HTN, Raynaud's, and GERD who presented to the ED for dizziness, sweating, and abdominal cramping the morning of 09/11, followed by an episode of bloody diarrhea x 1 on the afternoon of 09/11. She described the stool as liquid, with bright red blood and possible dark red clots. No history of IBS, Crohn's, UC, lactose intolerance, or food allergies. No recent changes in diet. No recent antibiotic use. Upon evaluation at the ED she had a CT showing marked thickening of the wall of the descending colon and to a lesser extent the transverse and sigmoid colon. There was also a question of blush of contrast in hepatic flexure vs under enhancement which could be a nonspecific colitis with GI bleeding. She has not moved her bowels yet today. Abdominal pain well controlled at this time. she denies any issues with nausea, vomiting, heartburn, dysphagia, unintentional weight loss, or melena. 09/12/23 hgb 12.8 Stool studies have been ordered but not yet collected. she is requesting to advance diet. Allergies Allergy/AdvReac Type Severity Reaction Status Date / Time No Known Allergies Allergy Verified 09/11/23 19:50 Home Medications Medication Instructions Recorded Confirmed Type blood-glucose meter (Accu-Chek #1 ea 07/15/19 08/29/23 History Rafaela Plus Meter) venlafaxine 150 mg 150 mg PO DAILY 04/03/22 09/11/23 History capsule,extended release 24 hr blood sugar diagnostic (Accu-Chek #200 ea 08/21/22 08/29/23 Rx Rafaela Plus test strips) lancets (Accu-Chek Fastclix Lancet #300 ea 08/21/22 08/29/23 Rx Drum) simvastatin 20 mg tablet 20 mg PO DAILY #90 tabs 08/21/22 09/11/23 Rx metformin 500 mg tablet 500 mg PO .COMPLEX #270 tabs 08/11/23 09/11/23 Rx gabapentin 100 mg capsule 100 mg PO TID 08/29/23 09/11/23 History lisinopril 2.5 mg tablet 2.5 mg PO DAILY #90 tabs 09/08/23 09/11/23 Rx Immune Health Support 1 dose PO DAILY 09/11/23 09/11/23 History Lactobacil.acidophilus-Bifido.animalis 1 cap PO DAILY 09/11/23 09/11/23 History 5 billion cell sprinkle capsule (Probiotic) acetaminophen 500 mg tablet 1,000 mg PO DIRECTED PRN Pain 09/11/23 09/11/23 History (Tylenol Extra Strength) eszopiclone 1 mg tablet 0.5 - 1 mg PO HS PRN Insomnia 09/11/23 09/11/23 History lorazepam 0.5 mg tablet 0.25 - 0.5 mg PO BID PRN Anxiety 09/11/23 09/11/23 History multivitamin 1 tab PO DAILY 09/11/23 09/11/23 History omeprazole 20 mg capsule,delayed 20 mg PO DAILY PRN 09/11/23 09/11/23 History release HEARTBURN/INDIGESTION Patient History Medical History (Updated 09/11/23 @ 23:07 by Lennox Velasco DO) Fracture of left patella Raynaud's disease Mixed conductive and sensorineural hearing loss of right ear with restricted hearing of left ear Insomnia Degenerative joint disease (DJD) of lumbar spine Chronic otitis externa Adenomatous polyp of colon Anxiety disorder Common peroneal neuropathy of left lower extremity Essential tremor Gait disturbance Osteoporosis Type 2 diabetes mellitus Vitamin D deficiency Concussion (2015) Herpes zoster (2014) Surgical History S/P dilation and curettage S/P section S/P appendectomy History of oral surgery Family History Father Colorectal cancer Diabetes Mother Hypertension Sister Hypertension Stroke Brother Stroke Social History Smoking Status: Never smoker Hx Alcohol Use: Yes Hx Substance Use: No Preferred Language: British Communication Ability: Effective Visual Impairment: No Limitations Hearing Ability: Normal Piling Cutter Required: No Beliefs That Will Affect Care: None marital status: / Current Living Situation: Alone Current Living Situation Comment: home with cat current occupational status: retired Other Information That Helps Us Care for You: No Feels Safe at Home: Yes Safety Concerns: Feels Safe At This Time Physical Activity Frequency: Does not Exercise Seatbelt Use: always Assistive Devices: Glasses Review of Systems Review of Systems: All systems reviewed & are unremarkable except as noted in HPI & below Constitutional: + chills Physical Exam Constitutional: WD/WN, vitals as above Respiratory: normal respiratory effort, lungs clear to auscultation Cardiovascular: RRR, no murmur, no edema Gastrointestinal (Abdomen): normal bowel sounds, soft, nontender, no hepatosplenomegaly Skin: no rashes, warm and dry Psychiatric: Orientation: alert and oriented x 3 Affect: euthymic affect Results & Data Vital Signs (Past 12 Hours) Vital Signs Temp Pulse Pulse Resp BP BP Pulse Ox 09/12/23 07:30 98.4 F 87 20 152/75 H 95 09/12/23 07:11 90 09/12/23 00:10 16 09/12/23 00:00 88 09/12/23 00:00 98.4 F 14 97 09/11/23 22:50 92 H 24 94 09/11/23 22:49 98 H 09/11/23 22:40 92 H 22 93 09/11/23 22:30 151/88 H 09/11/23 22:30 97 H 19 93 09/11/23 22:20 93 H 16 94 09/11/23 22:10 90 16 94 09/11/23 22:00 170/89 H 09/11/23 22:00 96 H 20 93 09/11/23 21:50 91 H 15 95 O2 Del Method 09/12/23 07:30 Room Air 09/12/23 07:11 09/12/23 00:10 09/12/23 00:00 09/12/23 00:00 Room Air 09/11/23 22:50 Room Air 09/11/23 22:49 09/11/23 22:40 09/11/23 22:30 09/11/23 22:30 09/11/23 22:20 Room Air 09/11/23 22:10 09/11/23 22:00 09/11/23 22:00 09/11/23 21:50 PG Care Time/CCT Total # of Minutes Spent Total Time Spent with Patient: Total time spent is greater than 50% in coordination of care (as documented) at patient's floor/unit and/or counseling patient: Coding Level of Care Code 83889 INT INP/OBS CARE 2/55MIN Diagnoses Abdominal pain R10.9 Abdominal location: unspecified location Bloody diarrhea R19.7 Time Spent (min) 56 (1) Abdominal pain Abdominal location: unspecified location Qualified Code(s): R10.9 - Unspecified abdominal pain
--- NOTE | 2023-09-12 10:56 | Hospitalist Progress Note ---
Date of Service September 12, 2023 Assessment & Plan (1) Bloody diarrhea: Plan: - Bloody diarrhea x 1 the morning of 09/11 - Patient reports she took aspirin the morning of 09/11 after waking up and feeling abdominal cramping, dizziness, sweating; she was concerned she was having a stroke; no hx of stroke, but family hx of stroke. No similar symptoms since - No hx of IBS, Crohn's, UC, lactose intolerance, or food allergies - Hx of hemorrhoids when , but patient does not believe she has had any recently - Patient was taking Aleve 1-2 tabs daily for her sciatica last month, but has not taken any in the past 2-3 weeks - CTA/p: nonspecific colitis with possible active GI bleeding GI Consulted - Await stool studies - Advanced to clear liquids - No plans for endoscopic evaluation currently - H&H Stable - Protonix 40 mg IV twice daily - PRN tylenol for pain - Continue fluid resuscitation with LR at 100ml/hr until tolerating diet - Stool GI PCR panel pending (not yet collected); will defer antibiotics until E. coli 0157 is determined to be negative - UA pending (2) Anxiety disorder: Plan: Patient reports she has been having increased anxiety this upcoming week; she w as set to fly to [place] to visit her daughter on 09/12; has not seen her daughter in 4 years Hold home lorazepam Lorazepam 0.5 mg PO q8h as needed for anxiety (3) GERD (gastroesophageal reflux disease): Plan: Hold home omeprazole Protonix (as above) (4) Type 2 diabetes mellitus: Plan: Last A1c 6.7% on 08/18/2023; no need to repeat Hold home metformin Loose SSI while inpatient; goal target range 071007kk/dL, CF 60, carb ratio 20 BSG ACHS 379 BS this afternoon, taken after eating. continue to monitor dinner and AM fasting if need to tighten parameters (5) Essential tremor: Plan: Resume home gabapentin (6) Depression: Plan: Resume home venlafaxine (7) Hyperlipidemia: Plan: Resume home simvastatin (8) Hypertension: Plan: Resume home lisinopril Plan Disposition: continued inpatient stay VTE PPx: SCDs (hold chemical DVT PPx for now) Admission and Anticipated Discharge Date Admission Date: September 11, 2023 Supervising Physician Co-Signing Physician Notes Attending Attestation - Chart reviewed, care plan d/w SHAKIRA Hilario. I agree w/ the cabrera components of her documentation. Edu Collazo MD Subjective Patient seen lying in bed. States she just saw the GI provider and they are going to allow her to start a diet. She is having some abdominal pain that she rates a 4 out of 10. Denies any nausea or vomiting. Has not had any further bowel movements since a bloody bowel bowel movement yesterday afternoon, she thought she had a bowel movement yesterday evening but was told it was just urine. Has not noticed any blood in her urine, but does not think she has been checking. No pain with urination. Does not feel like she has any hemorrhoids currently, as she has had problems with these in the past. Denies chest pain or shortness of breath. Tele: NSR with PVCs 60-70s Review of Systems Review of Systems: All systems reviewed & are unremarkable except as noted in Subjective Physical Exam Physical Exam: General: WN/WD, NAD, VS as above Resp: normal respiratory effort, lungs clear to auscultation CV: RRR, no murmur, Abd: normal bowel sounds, mild tenderness, no rebounding or guarding. No focal area of tenderness Extremities: Moves all extremities, no edema Neuro: A&O x3, Skin: intact, no lesions noted Results & Data Results & Data Vital Signs (Past 12 Hours) Vital Signs Temp Pulse Pulse Resp BP Pulse Ox O2 Del Method 09/12/23 07:30 36.9 C 87 20 152/75 H 95 Room Air 09/12/23 07:11 90 09/12/23 00:10 16 09/12/23 00:00 88 09/12/23 00:00 36.9 C 14 97 Room Air Laboratory Results CBC, chemistry reviewed PG Care Time/CCT Total # of Minutes Spent Total Time Spent with Patient: Total time spent is greater than 50% in coordination of care (as documented) at patient's floor/unit and/or counseling patient: Coding Level of Care Code 76376 SUB INP/OBS CARE 3/50MIN Diagnoses Bloody diarrhea R19.7 Anxiety disorder F41.9 GERD (gastroesophageal reflux disease) K21.9 Type 2 diabetes mellitus E11.9 Essential tremor G25.0 Depression F32.9 Hyperlipidemia E78.5 Hypertension I10
[2023-09-12] MEDS ORDERED: ACETAMINOPHEN 500 MG TAB PO PRN (11:05)
[2023-09-12] MEDS ORDERED: VENLAFAXINE HCL XR 150 MG CAPXR PO SCH (12:10)
[2023-09-12] MEDS: lisinopril 2.5 MG TAB PO SCH (12:32)
[2023-09-12] MEDS: VENLAFAXINE HCL XR 150 MG CAPXR PO SCH (13:18)
[2023-09-12] MEDS: GABAPENTIN 100 MG CAP PO SCH ×2 (13:18→20:47)
[2023-09-12] MEDS ORDERED: SIMVASTATIN 20 MG TAB PO SCH (14:15)
[2023-09-12 15:28] LABS: Appearance Urine Clear (Clear); Bacteria Urine Automated Negative (Negative); Bilirubin Urine Negative (Negative); Blood Urine 3+ (Negative); Cast Urine Automated 0 /lpf (0-5); Color Urine Yellow; Epithelial Cell Urine Auto 0-5 /lpf (0-5); Glucose Urine UA Negative (Negative); Ketones Urine Trace (Negative); Leukocyte Esterase Urine 1+ (Negative); Nitrite Urine Negative (Negative); Protein Urine 3+ (Negative); Specific Gravity Urine 1.035 (1.000-1.030); Urobilinogen Urine Negative (Negative); WBC Urine Automated >30 /hpf (0-5); pH Urine 5.5 (4.5-7.5)
[2023-09-12 15:38] LABS: RBC Urine Automated >30 /hpf (0-4)
[2023-09-12] MEDS: SIMVASTATIN 20 MG TAB PO SCH (20:47)
[2023-09-13 06:39] LABS: Basophils # (auto) 0.08 K/uL (0.00-0.20); Basophils % (auto) 0.6 %; Eosinophils # (auto) 0.31 K/uL (0.00-0.50); Eosinophils % (auto) 2.3 %; Hematocrit (blood only) 39.5 % (37.0-47.0); Hemoglobin 13.1 g/dl (12.0-16.0); Immature Granulocytes # (auto) 0.05 K/uL (0.01-0.20); Immature Granulocytes % (auto) 0.4 %; Lymphocytes # (auto) 1.89 K/uL (1.20-3.40); Lymphocytes % (auto) 13.8 %; Mean Corpuscular Hemoglobin 29.8 pg (25.0-34.0); Mean Corpuscular Hgb Conc 33.2 g/dL (32.0-36.0); Monocytes # (auto) 0.85 K/uL (0.11-0.59); Monocytes % (auto) 6.2 %; Neutrophils # (auto) 10.54 K/uL (1.40-6.50); Neutrophils % (auto) 76.7 %; Platelet Count 220 K/uL (130-400); RDW Coefficient of Variation 14.2 % (11.5-14.5); RDW Standard Deviation 46.6 fL (36.4-46.3); Red Blood Count 4.39 M/uL (4.20-5.40); White Blood Count 13.72 K/ul (4.8-10.8)
[2023-09-13 07:12] LABS: BUN Creatinine Ratio 11.8 (10-20); Calcium 8.6 mg/dl (8.6-10.3); Creatinine Clr Calc Pharmacy 50.5 ml/min; Est GFR (African American) 92.4 ml/min; Est GFR (Non-African American) 79.8 ml/min; Potassium 3.5 mmol/L (3.5-5.1)
[2023-09-13] MEDS: GABAPENTIN 100 MG CAP PO SCH ×3 (08:48→21:00)
[2023-09-13] MEDS: VENLAFAXINE HCL XR 150 MG CAPXR PO SCH (08:50)
[2023-09-13] MEDS: lisinopril 2.5 MG TAB PO SCH (08:50)
[2023-09-13] MEDS: PANTOprazole 40 MG in SYRINGE 0 ML IV SCH ×2 (08:51→21:00)
[2023-09-13] MEDS ORDERED: VENLAFAXINE HCL XR 150 MG CAPXR PO SCH (09:00)
[2023-09-13] MEDS: INSULIN ASPART PER UNIT CHARGE SC SCH ×4 (09:04→21:00)
--- NOTE | 2023-09-13 14:44 | Hospitalist Progress Note ---
Date of Service September 13, 2023 Assessment & Plan (1) Bloody diarrhea: Plan: colitis seen on admission CT mainly left-sided colitis with partial involvement of transverse colon symptoms began very rapidly/acutely and woke her up from sleep history and imaging not c/w diverticulitis or IBD doubt infectious although cannot rule it out 100% unable to obtain stool BioFire and stool for c diff yet - most of her stool is blood and she keeps missing the hat in the toilet [id number] I am concerned her presentation was most c/w ischemic colitis she does have plaque in her abdominal aorta on CT she has ongoing abd bloating/distension however, bloody stools have improved in quantity and volume appreciate GI consult if this was ischemic colitis she should be on abx to prevent GI translocation of bacteria during her recovery thus, start rocephin 1gm daily + flagyl q8h no diet advancement - clears only; maybe advance tomorrow if she continues to improve add gentle IV fluids send stool for infectious w/u if possible (2) Colitis: Plan: ischemic vs infectious doubt new onset IBD no evidence of diverticulitis suspect ischemic event but can't rule it in 100% multiple risk factors for ischemia - age, HTN, hyperlipidemia, DM, etc check doppler of mesenteric vessels see #1 above for Rx and additional w/u (3) Anxiety disorder: Plan: Patient reports she has been having increased anxiety this upcoming week; she was set to fly to [place] to visit her daughter on 09/12; has not seen her daughter in 4 years Lorazepam 0.5 mg PO q8h as needed for anxiety (4) GERD (gastroesophageal reflux disease): Plan: Hold home omeprazole Protonix IV (5) Type 2 diabetes mellitus: Plan: Last A1c 6.7% on 08/18/2023; no need to repeat Hold home metformin Loose SSI while inpatient; goal target range 110162mw/dL, CF 60, carb ratio 25 BSGs controlled control very good while here (6) Essential tremor: Plan: cont home gabapentin (7) Depression: Plan: cont home venlafaxine (8) Hyperlipidemia: Plan: cont home simvastatin LDL 86 on recent lipid profile (9) Hypertension: Plan: cont home lisinopril BPs uncontrolled increase lisinopril to 5mg/day Plan VTE PPx: SCDs (hold chemical DVT PPx due to bloody stools) updated pt's son by phone this evening he just came in from [place] PT, OT change observation status to full admission status Admission and Anticipated Discharge Date Admission Date: September 11, 2023 Subjective patient reports improved abdominal pain does feel bloated tolerating clears - it is not causing worsening pain/nausea/or diarrhea or bleeding no nausea no emesis 2 small stools today - most of which was bright red blood denies any dyspnea she confirms that the abd pain that brought her to the hospital was very rapid/acute and awoke her from sleep she is NOT having liquid diarrhea stools tele stable overnight Review of Systems Review of Systems: gen - no fevers cv - no chest pain pulm - no dyspnea or WALKER GI - pain resolved Physical Exam Physical Exam: gen - pleasant, NAD neck - no JVD mouth - MM slightly dry heart - RRR, s1 s2 lungs - CTA b/l abd - distended but nontender, BS+, no HSM ext - no edema, pulses 2+ b/l psych - a/o x 3 Results & Data Results & Data Vital Signs (Past 12 Hours) Vital Signs Temp Pulse Pulse Resp BP Pulse Ox O2 Del Method 09/13/23 11:33 36.9 C 89 15 149/80 H 92 Room Air 09/13/23 09:45 Room Air 09/13/23 07:51 36.7 C 82 14 151/75 H 94 Room Air 09/13/23 07:14 92 H 09/13/23 04:04 36.6 C 86 18 138/77 91 Room Air 09/13/23 03:18 97 H Laboratory Results Laboratory Results 09/12/23 09/12/23 09/12/23 13:12 13:15 13:57 WBC RBC Hgb Hct MCV MCH MCHC RDW Std Deviation RDW Coeff of Astrid Plt Count MPV Immature Gran % (Auto) Neut % (Auto) Lymph % (Auto) Ferry % (Auto) Eos % (Auto) Baso % (Auto) Neut # (Auto) Lymph # (Auto) Ferry # (Auto) Eos # (Auto) Baso # (Auto) Immature Gran # (Auto) Sodium Potassium Chloride Carbon Dioxide Anion Gap BUN Creatinine Est Cr Clr Drug Dosing Est GFR ( Amer) Est GFR (Non-Af Amer) BUN/Creatinine Ratio Glucose 236 H POC Glucose 379 H* 190 H Calcium Urine Color Urine Appearance Urine pH Ur Specific Crane Urine Protein Urine Glucose (UA) Urine Ketones Urine Blood Urine Nitrite Urine Bilirubin Urine Urobilinogen Ur Leukocyte Esterase Urine WBC (Auto) Urine RBC (Auto) U Hyaline Cast (Auto) U Epithel Cells (Auto) Urine Bacteria (Auto) Urine Yeast 09/12/23 09/12/23 09/12/23 14:55 17:31 20:27 WBC RBC Hgb Hct MCV MCH MCHC RDW Std Deviation RDW Coeff of Astrid Plt Count MPV Immature Gran % (Auto) Neut % (Auto) Lymph % (Auto) Ferry % (Auto) Eos % (Auto) Baso % (Auto) Neut # (Auto) Lymph # (Auto) Ferry # (Auto) Eos # (Auto) Baso # (Auto) Immature Gran # (Auto) Sodium Potassium Chloride Carbon Dioxide Anion Gap BUN Creatinine Est Cr Clr Drug Dosing Est GFR ( Amer) Est GFR (Non-Af Amer) BUN/Creatinine Ratio Glucose POC Glucose 74 96 Calcium Urine Color Yellow Urine Appearance Clear Urine pH 5.5 Ur Specific Crane 1.035 H Urine Protein 3+ H Urine Glucose (UA) Negative Urine Ketones Trace H Urine Blood 3+ H Urine Nitrite Negative Urine Bilirubin Negative Urine Urobilinogen Negative Ur Leukocyte Esterase 1+ H Urine WBC (Auto) >30 H Urine RBC (Auto) >30 H U Hyaline Cast (Auto) 0 U Epithel Cells (Auto) 0-5 Urine Bacteria (Auto) Negative Urine Yeast Not Reportable 09/13/23 09/13/23 09/13/23 06:15 07:52 12:12 WBC 13.72 H RBC 4.39 Hgb 13.1 Hct 39.5 MCV 90.0 MCH 29.8 MCHC 33.2 RDW Std Deviation 46.6 H RDW Coeff of Astrid 14.2 Plt Count 220 MPV 10.0 Immature Gran % (Auto) 0.4 Neut % (Auto) 76.7 Lymph % (Auto) 13.8 Ferry % (Auto) 6.2 Eos % (Auto) 2.3 Baso % (Auto) 0.6 Neut # (Auto) 10.54 H Lymph # (Auto) 1.89 Ferry # (Auto) 0.85 H Eos # (Auto) 0.31 Baso # (Auto) 0.08 Immature Gran # (Auto) 0.05 Sodium 143 Potassium 3.5 D Chloride 109 H Carbon Dioxide 29 Anion Gap 5 BUN 8 Creatinine 0.68 Est Cr Clr Drug Dosing 50.5 Est GFR ( Amer) 92.4 Est GFR (Non-Af Amer) 79.8 BUN/Creatinine Ratio 11.8 Glucose 131 H POC Glucose 107 H 131 H Calcium 8.6 Urine Color Urine Appearance Urine pH Ur Specific Crane Urine Protein Urine Glucose (UA) Urine Ketones Urine Blood Urine Nitrite Urine Bilirubin Urine Urobilinogen Ur Leukocyte Esterase Urine WBC (Auto) Urine RBC (Auto) U Hyaline Cast (Auto) U Epithel Cells (Auto) Urine Bacteria (Auto) Urine Yeast PG Care Time/CCT Total # of Minutes Spent Total Time Spent with Patient: Total time spent is greater than 50% in coordination of care (as documented) at patient's floor/unit and/or counseling patient: Coding Level of Care Code 53518 SUB INP/OBS CARE 3/50MIN Diagnoses Bloody diarrhea R19.7 Colitis K52.9 Anxiety disorder F41.9 GERD (gastroesophageal reflux disease) K21.9 Type 2 diabetes mellitus E11.9 Essential tremor G25.0 Depression F32.9 Hyperlipidemia E78.5 Hypertension I10
[2023-09-13] MEDS: NSS + 20MEQ KCL 20 MEQ/1,000 ML BAG IV SCH (16:27)
[2023-09-13] MEDS: cefTRIAXone SODIUM 1,000 MG in DEXTROSE 5 % MINI-B 50 ML IV SCH (16:27)
[2023-09-13] MEDS: metroNIDAZOLE 500 MG/100 ML BAG IV SCH (16:57)
--- NOTE | 2023-09-13 19:14 | Ultrasound Report ---
US duplex mesenteric CLINICAL HISTORY: suspected ischemic colitis COMPARISON STUDY: CT of the abdomen and pelvis September 11, 2023. TECHNIQUE: Color and duplex Doppler sonography of the abdominal aorta and mesenteric vessels was perf ormed. FINDINGS: Peak systolic velocity within the abdominal aorta was 80 cm/s. Peak systolic velocity withi n the celiac axis was 411 cm/s during inspiration and 375 cm/s during expiration. Although velocity i s elevated, no severe stenosis was identified on CT. Peak systolic velocity within the SMA was 203 cm /s. The inferior mesenteric artery was not visualized by ultrasound however is patent on CT. Caliber of the abdominal was normal. There is moderate plaque within the abdominal aorta. IMPRESSION: 1. Patent SMA without evidence for stenosis. 2. Elevated peak systolic velocities within the celiac axis. However, no severe stenosis on CT. Paten t L[place] on CT. Overall, the findings do not suggest significant mesenteric vessel stenosis. ACT 112: Negative or not required by law. Electronically signed by: Eber Hardy M.D. 09/13/2023 7:12 PM
[2023-09-13] MEDS: SIMVASTATIN 20 MG TAB PO SCH (21:01)
[2023-09-13] MEDS: LORazepam 0.5 MG TAB PO PRN (22:52)
[2023-09-14] MEDS: metroNIDAZOLE 500 MG/100 ML BAG IV SCH ×4 (01:37→23:36)
[2023-09-14] MEDS: VENLAFAXINE HCL XR 150 MG CAPXR PO SCH (07:53)
[2023-09-14] MEDS: PANTOprazole 40 MG in SYRINGE 0 ML IV SCH ×2 (07:53→20:58)
[2023-09-14] MEDS: GABAPENTIN 100 MG CAP PO SCH ×3 (07:53→20:58)
[2023-09-14] MEDS: lisinopril 5 MG TAB PO SCH (07:53)
[2023-09-14 08:16] LABS: Basophils # (auto) 0.07 K/uL (0.00-0.20); Basophils % (auto) 0.9 %; Eosinophils # (auto) 0.45 K/uL (0.00-0.50); Eosinophils % (auto) 5.9 %; Hematocrit (blood only) 38.2 % (37.0-47.0); Hemoglobin 12.2 g/dl (12.0-16.0); Immature Granulocytes # (auto) 0.03 K/uL (0.01-0.20); Immature Granulocytes % (auto) 0.4 %; Lymphocytes # (auto) 1.35 K/uL (1.20-3.40); Lymphocytes % (auto) 17.8 %; Mean Corpuscular Hemoglobin 29.2 pg (25.0-34.0); Mean Corpuscular Hgb Conc 31.9 g/dL (32.0-36.0); Mean Corpuscular Volume 91.4 fL (80.0-100.0); Mean Platelet Volume 9.7 fL (9.4-12.4); Monocytes # (auto) 0.64 K/uL (0.11-0.59); Monocytes % (auto) 8.5 %; Neutrophils # (auto) 5.03 K/uL (1.40-6.50); Neutrophils % (auto) 66.5 %; Platelet Count 205 K/uL (130-400); RDW Coefficient of Variation 13.9 % (11.5-14.5); RDW Standard Deviation 47.2 fL (36.4-46.3); Red Blood Count 4.18 M/uL (4.20-5.40); White Blood Count 7.57 K/ul (4.8-10.8)
[2023-09-14 08:37] LABS: BUN Creatinine Ratio 8.6 (10-20); Creatinine Clr Calc Pharmacy 58.5 ml/min; Est GFR (African American) 97.4 ml/min; Potassium 3.7 mmol/L (3.5-5.1)
[2023-09-14] MEDS: INSULIN ASPART PER UNIT CHARGE SC SCH ×4 (08:46→20:57)
[2023-09-14] MEDS: NSS + 20MEQ KCL 20 MEQ/1,000 ML BAG IV SCH (08:47)
[2023-09-14] MEDS: cefTRIAXone SODIUM 1,000 MG in DEXTROSE 5 % MINI-B 50 ML IV SCH (14:27)
--- NOTE | 2023-09-14 15:44 | Hospitalist Progress Note ---
Date of Service September 14, 2023 Assessment & Plan (1) Bloody diarrhea: Plan: Bloody diarrhea With admitting CT consistent with colitis, left-sided With rapid onset of symptoms overnight day prior to admission. Inconsistent with diverticulitis/IBD on admitting imaging Stool bio fire is pending, difficult to obtain as she misses the toilet and has had bloody bowel movements this remains pending Suspected to be ischemic colitis now beginning to improve. - Mesenteric ultrasound with patent SMA no evidence of stenosis Patient improving with supportive care and IV fluids Will continue continue to attempt to advance diet slowly, patient feels ready for full today. Advanced. Dislocation prophylaxis continue with Rocephin/Flagyl. No signs of sepsis (2) Colitis: Plan: - ischemic vs infectious - as noted (3) Anxiety disorder: Plan: - Patient reports she has been having increased anxiety this upcoming week; she was set to fly to [place] to visit her daughter on 09/12; has not seen her daughter in 4 years and frustrated by admission - Lorazepam 0.5 mg PO continued TID PRN for anxiety (4) GERD (gastroesophageal reflux disease): Plan: Hold home omeprazole Protonix IV (5) Type 2 diabetes mellitus: Plan: Last A1c 6.7% on 08/18/2023; no need to repeat Hold home metformin Loose SSI while inpatient; goal target range 083570dz/dL, CF 60, carb ratio 25 BSGs controlled Reasonable BSG control so far (6) Essential tremor: Plan: cont home gabapentin (7) Depression: Plan: cont home venlafaxine (8) Hyperlipidemia: Plan: cont home simvastatin LDL 86 on recent lipid profile (9) Hypertension: Plan: cont home lisinopril BPs uncontrolled increase lisinopril to 5mg/day Plan VTE PPx: SCDs (hold chemical DVT PPx due to bloody stools) PT, OT Admission and Anticipated Discharge Date Admission Date: September 13, 2023 Subjective Claire reports that she started to feel little better today. She notes that her bowel movements seem to be improving, and she has not had any bloody bowel movements this morning, last evening prior. She has had mixed urine incontinence and has not been able to give an appropriate sample for PCR testing, discussed with nursing who will continue to attempt to obtain this. She denies fever/chills/sweats overnight. She does continue to have some low bilateral abdominal pain improved from prior. She would like to try advancing her diet today at least to full liquids and see how she does. If she feels this worsens she will pause and stay on clears. No other questions or concerns at bedside Physical Exam Physical Exam: General: A&Ox3. NAD. Cooperative. HEENT: Atraumatic, normocephalic. Vision/hearing grossly intact Pulm: CTAB A&P. -wheezes, -rales, -rhonchi. Symmetrical chest rise. No increased work of breathing. No respiratory distress. Cardiac: RRR, -mrg. Radial pulses intact and symmetrical. Abdominal: Minimally tender bilaterally in the lower quadrants, no rebound tenderness, no guarding, abdomen is soft Results & Data Results & Data Vital Signs (Past 12 Hours) Vital Signs Temp Pulse Pulse Resp BP Pulse Ox O2 Del Method 09/14/23 15:22 37.1 C 76 15 149/78 H 95 Room Air 09/14/23 11:30 36.7 C 83 14 176/77 H 94 Room Air 09/14/23 07:45 Room Air 09/14/23 07:42 36.7 C 85 16 160/77 H 96 Room Air 09/14/23 06:54 89 09/14/23 04:00 36.9 C 89 18 151/82 H 92 Room Air PG Care Time/CCT Total # of Minutes Spent Total Time Spent with Patient: Total time spent is greater than 50% in coordination of care (as documented) at patient's floor/unit and/or counseling patient: Coding Level of Care Code 33997 SUB INP/OBS CARE 3/50MIN Diagnoses Bloody diarrhea R19.7 Colitis K52.9 Anxiety disorder F41.9 GERD (gastroesophageal reflux disease) K21.9 Type 2 diabetes mellitus E11.9 Essential tremor G25.0 Depression F32.9 Hyperlipidemia E78.5 Hypertension I10
[2023-09-14] MEDS: POTASSIUM CHLORIDE 20 MEQ in PLASMA-LYTE A 1,000 ML IV SCH (17:08)
[2023-09-14] MEDS: SIMVASTATIN 20 MG TAB PO SCH (20:58)
[2023-09-14] MEDS: LORazepam 0.5 MG TAB PO PRN (23:36)
[2023-09-15 05:55] LABS: Basophils # (auto) 0.06 K/uL (0.00-0.20); Basophils % (auto) 0.9 %; Eosinophils # (auto) 0.89 K/uL (0.00-0.50); Eosinophils % (auto) 13.1 %; Hematocrit (blood only) 35.1 % (37.0-47.0); Hemoglobin 11.5 g/dl (12.0-16.0); Immature Granulocytes # (auto) 0.01 K/uL (0.01-0.20); Immature Granulocytes % (auto) 0.1 %; Lymphocytes # (auto) 1.69 K/uL (1.20-3.40); Mean Corpuscular Hemoglobin 29.3 pg (25.0-34.0); Mean Corpuscular Hgb Conc 32.8 g/dL (32.0-36.0); Mean Corpuscular Volume 89.5 fL (80.0-100.0); Monocytes # (auto) 0.62 K/uL (0.11-0.59); Monocytes % (auto) 9.2 %; Neutrophils % (auto) 51.7 %; Platelet Count 214 K/uL (130-400); RDW Coefficient of Variation 13.9 % (11.5-14.5); RDW Standard Deviation 45.2 fL (36.4-46.3); Red Blood Count 3.92 M/uL (4.20-5.40); White Blood Count 6.77 K/ul (4.8-10.8)
[2023-09-15 06:08] LABS: BUN Creatinine Ratio 6.3 (10-20); Calcium 8.1 mg/dl (8.6-10.3); Creatinine Clr Calc Pharmacy 53.9 ml/min; Est GFR (African American) 94.8 ml/min; Est GFR (Non-African American) 81.8 ml/min; Magnesium 1.7 mg/dl (1.7-2.4); Potassium 4.2 mmol/L (3.5-5.1)
[2023-09-15] MEDS: POTASSIUM CHLORIDE 20 MEQ in PLASMA-LYTE A 1,000 ML IV SCH (06:35)
[2023-09-15] MEDS: GABAPENTIN 100 MG CAP PO SCH ×3 (08:20→21:41)
[2023-09-15] MEDS: VENLAFAXINE HCL XR 150 MG CAPXR PO SCH (08:20)
[2023-09-15] MEDS: metroNIDAZOLE 500 MG/100 ML BAG IV SCH ×2 (08:21→15:24)
[2023-09-15] MEDS: lisinopril 5 MG TAB PO SCH (08:21)
[2023-09-15] MEDS: PANTOprazole 40 MG in SYRINGE 0 ML IV SCH (08:21)
[2023-09-15] MEDS: INSULIN ASPART PER UNIT CHARGE SC SCH ×4 (08:22→20:29)
[2023-09-15 09:44] LABS: Phosphorus 2.9 mg/dl (2.5-4.9)
--- NOTE | 2023-09-15 13:37 | Hospitalist Progress Note ---
Date of Service September 15, 2023 Assessment & Plan (1) Bloody diarrhea: Plan: Bloody diarrhea With admitting CT consistent with colitis, left-sided With rapid onset of symptoms overnight day prior to admission. Inconsistent with diverticulitis/IBD on admitting imaging Stool bio fire is pending, difficult to obtain as she misses the toilet and has had bloody bowel movements this remains pending Suspected to be ischemic colitis now beginning to improve. Mesenteric ultrasound with patent SMA no evidence of stenosis Patient improving with supportive care and IV fluids Will continue continue to attempt to advance diet slowly, patient feels ready for minced and moist today. Advanced. Continue empiric prophylaxis with Rocephin/Flagyl. No signs of sepsis (2) Colitis: Plan: - ischemic vs infectious - as noted (3) Anxiety disorder: Plan: - Patient reports she has been having increased anxiety this upcoming week; she was set to fly to [place] to visit her daughter on 09/12; has not seen her daughter in 4 years and frustrated by admission - Lorazepam 0.5 mg PO continued TID PRN for anxiety (4) GERD (gastroesophageal reflux disease): Plan: Place back on pantoprazole 40mg PO daily as not suspect to have upper GI bleed. Can likely go back to PRN PPI dosing on discharge. (5) Type 2 diabetes mellitus: Plan: Last A1c 6.7% on 08/18/2023; no need to repeat Hold home metformin Loose SSI while inpatient; goal target range 708742fn/dL, CF 60, carb ratio 25 BSGs controlled Reasonable BSG control so far (6) Essential tremor: Plan: cont home gabapentin (7) Depression: Plan: cont home venlafaxine (8) Hyperlipidemia: Plan: cont home simvastatin LDL 86 on recent lipid profile (9) Hypertension: Plan: cont home lisinopril BPs uncontrolled however in general more risk than benefit of up tittrating home medications during inpatient admissions, will hold at 5mg up titration but would be hesitatant to increase further despite elevated BPs Plan VTE Prophylaxis - SCDs, chemical held due to bloody diarrhea Diet - T2DM, mined and moist Disposition - stable for transfer to med/surg, SR on telemetry and stable Admission and Anticipated Discharge Date Admission Date: September 13, 2023 Subjective Continued improvement on full liquid diet. No abdominal pain, nausea of vomiting associated with eating. Having mucus BMs. Wishes to advance to mined and moist diet. Review of Systems Review of Systems: All systems reviewed & are unremarkable except as noted in HPI & below Physical Exam Constitutional: WD/WN, vitals as above Respiratory: normal respiratory effort, lungs clear to auscultation Cardiovascular: RRR, no murmur, no edema Gastrointestinal (Abdomen): Inspection/Auscultation: + abdomen distended Percussion/Palpation: abdomen soft; abdomen nontender, no guarding and abdomen not rigid Results & Data Results & Data Vital Signs (Past 12 Hours) Vital Signs Temp Pulse Pulse Resp BP Pulse Ox O2 Del Method 09/15/23 11:47 36.9 C 88 16 180/75 H 95 Room Air 09/15/23 08:10 Room Air 09/15/23 07:54 36.7 C 82 16 168/72 H 90 Room Air 09/15/23 07:05 89 09/15/23 05:10 82 09/15/23 03:00 37 C 78 18 133/74 95 Room Air PG Care Time/CCT Total # of Minutes Spent Total Time Spent with Patient: Total time spent is greater than 50% in coordination of care (as documented) at patient's floor/unit and/or counseling patient: Coding Level of Care Code 73695 SUB INP/OBS CARE 2/35MIN Diagnoses Bloody diarrhea R19.7 Colitis K52.9 Anxiety disorder F41.9 GERD (gastroesophageal reflux disease) K21.9 Type 2 diabetes mellitus E11.9 Essential tremor G25.0 Depression F32.9 Hyperlipidemia E78.5 Hypertension I10
[2023-09-15] MEDS: cefTRIAXone SODIUM 1,000 MG in DEXTROSE 5 % MINI-B 50 ML IV SCH (14:28)
[2023-09-15] MEDS: SIMVASTATIN 20 MG TAB PO SCH (21:41)
[2023-09-15] MEDS: LORazepam 0.5 MG TAB PO PRN (22:39)
[2023-09-16] MEDS: metroNIDAZOLE 500 MG/100 ML BAG IV SCH ×4 (07:26→23:30)
[2023-09-16] MEDS: VENLAFAXINE HCL XR 150 MG CAPXR PO SCH (08:13)
[2023-09-16] MEDS: lisinopril 5 MG TAB PO SCH (08:13)
[2023-09-16] MEDS: GABAPENTIN 100 MG CAP PO SCH ×3 (08:13→21:25)
[2023-09-16] MEDS: PANTOprazole 40 MG TAB PO SCH (08:13)
[2023-09-16] MEDS: INSULIN ASPART PER UNIT CHARGE SC SCH ×4 (08:14→20:42)
[2023-09-16 10:25] LABS: Basophils # (auto) 0.05 K/uL (0.00-0.20); Basophils % (auto) 0.7 %; Eosinophils # (auto) 1.16 K/uL (0.00-0.50); Eosinophils % (auto) 16.7 %; Hematocrit (blood only) 39.5 % (37.0-47.0); Hemoglobin 12.7 g/dl (12.0-16.0); Immature Granulocytes # (auto) 0.02 K/uL (0.01-0.20); Immature Granulocytes % (auto) 0.3 %; Mean Corpuscular Hemoglobin 29.3 pg (25.0-34.0); Mean Corpuscular Hgb Conc 32.2 g/dL (32.0-36.0); Mean Platelet Volume 9.2 fL (9.4-12.4); Monocytes # (auto) 0.64 K/uL (0.11-0.59); Monocytes % (auto) 9.2 %; Neutrophils # (auto) 3.49 K/uL (1.40-6.50); Neutrophils % (auto) 50.1 %; Platelet Count 236 K/uL (130-400); RDW Coefficient of Variation 13.8 % (11.5-14.5); RDW Standard Deviation 45.8 fL (36.4-46.3); Red Blood Count 4.34 M/uL (4.20-5.40); White Blood Count 6.96 K/ul (4.8-10.8)
[2023-09-16] MEDS ORDERED: POLYETHYLENE (MIRALAX) 17 GM PACK PO SCH (10:30)
[2023-09-16 10:39] LABS: BUN Creatinine Ratio 13.9 (10-20); Calcium 8.5 mg/dl (8.6-10.3); Creatinine Clr Calc Pharmacy 47.1 ml/min; Est GFR (African American) 88.5 ml/min; Est GFR (Non-African American) 76.4 ml/min; Potassium 3.6 mmol/L (3.5-5.1)
--- NOTE | 2023-09-16 15:00 | Hospitalist Progress Note ---
Date of Service September 16, 2023 Assessment & Plan (1) Bloody diarrhea: Plan: Bloody diarrhea With admitting CT consistent with colitis, left-sided With rapid onset of symptoms overnight day prior to admission. Inconsistent with diverticulitis/IBD on admitting imaging Stool bio fire is pending, difficult to obtain as she misses the toilet and has had bloody bowel movements this remains pending Suspected to be ischemic colitis now improving Mesenteric ultrasound with patent SMA no evidence of stenosis Patient diet advancing; she is still not had any recurrent bowel movements has not had PCR testing. Nearing 5-day course of antibiotics regardless of completion of stool bio fire, she is improving with IV fluids. She is not comfortable with return home until she has had a nonbloody bowel movement and has not had a bowel movement since initial admit. Bowel regimen added and increased. Empiric prophylaxis continue with Rocephin/Flagyl although this could be discontinued at latest with 09/18 If continues to tolerate diet with no ongoing signs of bleeding despite discharge 09/17, we will not prescribe further antibiotics unless PCR positive at that time. (2) Colitis: Plan: - ischemic vs infectious - as noted (3) Anxiety disorder: Plan: - Patient reports she has been having increased anxiety this upcoming week; she was set to fly to [place] to visit her daughter on 09/12; has not seen her daughter in 4 years and frustrated by admission - Lorazepam 0.5 mg PO continued TID PRN for anxiety Daughter was in a car accident 09/16, patient with increased anxiety (4) GERD (gastroesophageal reflux disease): Plan: Place back on pantoprazole 40mg PO daily as not suspect to have upper GI bleed. Can likely go back to PRN PPI dosing on discharge. (5) Type 2 diabetes mellitus: Plan: Last A1c 6.7% on 08/18/2023; no need to repeat Hold home metformin Loose SSI while inpatient; goal target range 490274dy/dL, CF 60, carb ratio 25 BSGs controlled Reasonable BSG control so far (6) Essential tremor: Plan: cont home gabapentin (7) Depression: Plan: cont home venlafaxine (8) Hyperlipidemia: Plan: cont home simvastatin LDL 86 on recent lipid profile (9) Hypertension: Plan: cont home lisinopril BPs uncontrolled however in general more risk than benefit of up tittrating home medications during inpatient admissions, will hold at 5mg up titration but would be hesitatant to increase further despite elevated BPs Plan VTE Prophylaxis - SCDs, chemical held due to bloody diarrhea Diet - T2DM, advanced to soft bite-size Disposition - M/S Admission and Anticipated Discharge Date Admission Date: September 13, 2023 Subjective Seen at bedside. No BM in several days. Still pending stool cx, but feeling improved. Very nervous about bleeding. No CP/CP/SoB/LH/dizziness/syncope/presyncope. Physical Exam Physical Exam: General: A&Ox3. NAD. Cooperative. HEENT: Atraumatic, normocephalic. Pulm: CTAB A&P. -wheezes, -rales, -rhonchi. Symmetrical chest rise. No increased work of breathing. No respiratory distress. Cardiac: RRR, -mrg. Radial pulses intact and symmetrical. Abdominal: Nontender, nondistended, soft. BS present. Results & Data Results & Data Vital Signs (Past 12 Hours) Vital Signs Temp Pulse Resp BP Pulse Ox O2 Del Method 09/16/23 07:23 36.6 C 82 18 137/80 96 Room Air 09/16/23 04:37 167/78 H PG Care Time/CCT Total # of Minutes Spent Total Time Spent with Patient: Total time spent is greater than 50% in coordination of care (as documented) at patient's floor/unit and/or counseling patient: Coding Level of Care Code 15351 SUB INP/OBS CARE 2/35MIN Diagnoses Bloody diarrhea R19.7 Colitis K52.9 Anxiety disorder F41.9 GERD (gastroesophageal reflux disease) K21.9 Type 2 diabetes mellitus E11.9 Essential tremor G25.0 Depression F32.9 Hyperlipidemia E78.5 Hypertension I10
[2023-09-16] MEDS: cefTRIAXone SODIUM 1,000 MG in DEXTROSE 5 % MINI-B 50 ML IV SCH (15:27)
[2023-09-16] MEDS ORDERED: amLODIPine BESYLATE 5 MG TAB PO ONE (16:15)
[2023-09-16] MEDS ORDERED: DOCUSATE SODIUM/SENNA 50/8.6MG TAB PO SCH (21:00)
[2023-09-16] MEDS: POLYETHYLENE (MIRALAX) 17 GM PACK PO SCH (21:25)
[2023-09-16] MEDS: SIMVASTATIN 20 MG TAB PO SCH (21:25)
[2023-09-16] MEDS: LORazepam 0.5 MG TAB PO PRN (22:18)
[2023-09-17] MEDS: metroNIDAZOLE 500 MG/100 ML BAG IV SCH ×2 (07:29→15:36)
[2023-09-17 07:32] VITALS: RESP 16
[2023-09-17] MEDS: GABAPENTIN 100 MG CAP PO SCH ×2 (08:57→15:39)
[2023-09-17] MEDS: lisinopril 5 MG TAB PO SCH (08:57)
[2023-09-17] MEDS: VENLAFAXINE HCL XR 150 MG CAPXR PO SCH (08:57)
[2023-09-17] MEDS: PANTOprazole 40 MG TAB PO SCH (08:57)
[2023-09-17] MEDS: POLYETHYLENE (MIRALAX) 17 GM PACK PO SCH (08:57)
[2023-09-17] MEDS: INSULIN ASPART PER UNIT CHARGE SC SCH ×2 (09:07→12:20)
[2023-09-17] MEDS ORDERED: bisacodyL 5 MG TABEC PO PRN (09:15)
[2023-09-17 09:47] LABS: BUN Creatinine Ratio 14.3 (10-20); Calcium 8.4 mg/dl (8.6-10.3); Creatinine Clr Calc Pharmacy 48.5 ml/min; Est GFR (African American) 91.6 ml/min; Potassium 3.8 mmol/L (3.5-5.1)
[2023-09-17 09:56] LABS: Basophils # (auto) 0.05 K/uL (0.00-0.20); Basophils % (auto) 0.9 %; Eosinophils # (auto) 0.62 K/uL (0.00-0.50); Eosinophils % (auto) 11.5 %; Hematocrit (blood only) 37.2 % (37.0-47.0); Hemoglobin 12.1 g/dl (12.0-16.0); Immature Granulocytes # (auto) 0.02 K/uL (0.01-0.20); Immature Granulocytes % (auto) 0.4 %; Lymphocytes # (auto) 1.53 K/uL (1.20-3.40); Lymphocytes % (auto) 28.4 %; Mean Corpuscular Hemoglobin 29.4 pg (25.0-34.0); Mean Corpuscular Hgb Conc 32.5 g/dL (32.0-36.0); Mean Corpuscular Volume 90.3 fL (80.0-100.0); Mean Platelet Volume 9.9 fL (9.4-12.4); Monocytes # (auto) 0.72 K/uL (0.11-0.59); Monocytes % (auto) 13.4 %; Neutrophils # (auto) 2.44 K/uL (1.40-6.50); Neutrophils % (auto) 45.4 %; Platelet Count 235 K/uL (130-400); RDW Coefficient of Variation 13.8 % (11.5-14.5); RDW Standard Deviation 45.5 fL (36.4-46.3); Red Blood Count 4.12 M/uL (4.20-5.40); White Blood Count 5.38 K/ul (4.8-10.8)
[2023-09-17] MEDS ORDERED: bisacodyL 10 MG SUPP PR PRN (09:59)
[2023-09-17] MEDS ORDERED: bisacodyL 5 MG TABEC PO ONE (13:26)
[2023-09-17 14:01] VITALS: BP 147/77; TEMP 97.9; O2SAT 93
[2023-09-17] MEDS: cefTRIAXone SODIUM 1,000 MG in DEXTROSE 5 % MINI-B 50 ML IV SCH (14:57)
--- NOTE | 2023-09-17 15:07 | Discharge Summary ---
Date of Service September 17, 2023 Admission HPI Per Admitting Provider Claire is a pleasant 87-year-old female with PMH of T2DM, osteoporosis, essential tremor, anxiety, depression, DJD of the lumbar spine, insomnia, HLD, HTN, Raynaud's, and GERD. She presented for feelings of dizziness, sweating, and abdominal cramping the morning of 09/11, followed by an episode of bloody diarrhea x 1 on the afternoon of 09/11. Patient is not on blood thinners. She described the stool as liquidy, with bright red blood and possible dark red clots. She is not having abdominal pain at present, but endorses abdominal cramping which she rates 3/10 across the lower quadrants bilaterally. No rad iation. She reports that she took an aspirin this morning over concern for a stroke. She said she was feeling dizzy, and sweating so she laid down on the ground. She has a family history of stroke, but has never had one personally. No facial droop, slurred speech, or unilateral deficits appreciated by the patient (or on physical exam). No history of IBS, Crohn's, UC, lactose intolerance, or food allergies. No recent changes in diet. No recent antibiotic use. Patient was recently taking Aleve tablet for her sciatica (1- 2/day), but reports she has not taken them in the past 2-3 weeks. Patient lives alone. No recent falls. History of several concussions. History of hemorrhoids when she was , but she does not think that she currently has them or that they are contributing. Patient reports she only had some tea and toast this morning. No laxative use. No tick bites. No recent travel. No recent camping. No past experiences of blood in the stool such as this. She de nies having pain after eating. She took all of her regular morning medications. Patient exhibits hypertension at 164/91 at time of admission. ROS: Patient endorses sweating (this morning), dizziness (this morning), constipation (ongoing), and bloody diarrhea. Patient denies fevers, BUCK, joint achiness, facial droop, slurred speech, chest pain, chest palpitations, SOB, cough, N/V, burning with urination, dysuria, saddle anesthesia, or numbness/tingling in legs. Past abdominal surgeries include a where her appendix was taken out. Principal Diagnosis Suspected ischemic colitis, improved Discharge Exam General: A&Ox3. NAD. Cooperative. HEENT: Atraumatic, normocephalic. Pulm: CTAB A&P. -wheezes, -rales, -rhonchi. Symmetrical chest rise. No increased work of breathing. No respiratory distress. Cardiac: RRR, -mrg. Radial pulses intact and symmetrical. Abdominal: Nontender, nondistended, soft. BS present. Discharge Data Allergies Allergy/AdvReac Type Severity Reaction Status Date / Time No Known Allergies Allergy Verified 09/11/23 19:50 Consultations 09/11/23 21:33 ED Decision to Admit Stat 09/12/23 00:10 Consult Gastroenterology Routine Ordered Studies 09/11/23 17:11 CT abd pelvis IV con only Stat 09/13/23 14:42 US duplex mesenteric Routine Hospital Course (1) Bloody diarrhea: Summary: Patient had sudden onset of left-sided pain with bright red blood per rectum. Initial diagnosis suspicious for ischemic colitis versus ruptured diverticulum versus IBD versus infectious. She did not show any evidence of diverticulitis or IBD on admitting CT. Stool bio fire was pending, was delayed due to subsequent constipation. Patient clinically progressed and had no recurrent episodes of bleeding, abdominal pain improved, and clinically improved with resolution of her pain with IV fluids. She was treated with ceftriaxone/Flagyl for potential infection and translocation prophylaxis. She completed a course of this while inpatient, PCR was pending at time of discharge patient did have a nonbloody formed bowel movement prior to discharge and without pain. No additional antibiotics were prescribed at time of discharge. Mesenteric ultrasound showed a patent SMA with no evidence of stenosis. She is clinically well and had good strength on PT evaluation was recommended to discharge home with family support, she was near her independent ambulatory baseline on their assessment with no 6 clicks functional loss. She was tolerating her diet and was hemodynamically stable at time of discharge. eding despite discharge 09/17, we will not prescribe further antibiotics unless PCR positive at that time. (2) Colitis: (3) Anxiety disorder: - Patient reports she has been having increased anxiety this upcoming week; she was set to fly to [place] to visit her daughter on 09/12; has not seen her daughter in 4 years and frustrated by admission - Lorazepam 0.5 mg PO continued TID PRN for anxiety Daughter was in a car accident 09/16, patient with increased anxiety (4) GERD (gastroesophageal reflux disease): Place back on pantoprazole 40mg PO daily as not suspect to have upper GI bleed. Can likely go back to PRN PPI dosing on discharge. (5) Type 2 diabetes mellitus: Last A1c 6.7% on 08/18/2023; no need to repeat Hold home metformin Loose SSI while inpatient; goal target range [id number]/dL, CF 60, carb ratio 25 BSGs controlled as inpt. Metformin resumed on dc (6) Essential tremor: cont home gabapentin (7) Depression: cont home venlafaxine (8) Hyperlipidemia: cont home simvastatin LDL 86 on recent lipid profile (9) Hypertension: cont home lisinopril BPs uncontrolled however in general more risk than benefit of up tittrating home medications during inpatient admissions, will hold at 5mg up titration but would be hesitatant to increase further despite elevated BPs Total Time Total Time Spent Total Time Spent (In Minutes): Time spend day of discharge 55 minutes including direct patient care, documentation, clinical reevaluation, review of labs and images, and coordination of care. Discharge Plan Discharge Items Patient Disposition: Home - Self-Care Reason For Visit: BLOODY DIARRHEA Discharge Diagnosis: Hematochezia, suspect ischemic colitis Activity: Resume your previous activity Non-emergency contact: Primary Care Provider Call non-emergency contact if: your symptoms worsen and you have a fever Follow-up/Referrals: Pro,Frankie Velasquez MD [Primary Care Provider] - Diet: Regular Addtl Attending Provider Instructions: You are seen in the hospital for bloody bowel movements, thought to be due to ischemic colitis. You clinically improved and returned to your baseline with IV fluids. You were treated with antibiotics and completed a course of antibiotics while in the hospital, no additional antibiotics were prescribed on discharge. You had a bowel movement prior to discharge which was without blood or concerning features. A formal PCR test was pending at time of discharge on your stool study; you may follow-up with this at your PCP follow-up appointment however you did complete an antibiotic course regardless and no additional antibiotics were recommended. Imaging of your abdomen did not show any evidence of persistent or large vessel occlusion (you did not show SMA occlusion/thrombosis). You are ambulating well at your normal strength baseline and were recommended for discharge home. If you develop any new or worsening symptoms including fever, chills, sweats, chest pain, chest pressure, difficulty breathing, uncontrolled nausea/vomiting, rash, wheezing, passing out or nearly passing out, bleeding, black/bloody bowel movements, or other new or concerning symptoms please call your primary care physician, or call 911 for re-evaluation in the emergency department if you are very concerned. Pending Studies at Discharge: Yes (stool pcr results) Stand-Alone Forms: My [facility], Smoking Cessation Medications and DC Order Prescriptions: Continued (DME) blood-glucose meter [Accu-Chek Rafaela Plus Meter] mis See Dose Instructions .ROUTE .MEDSUPPLY Qty: 1 Rx Instructions: use to test twice daily metformin 500 mg tablet 500 mg PO .COMPLEX Qty: 270 3RF Rx Instructions: 500 mg PO Take one tablet in the morning and two tabs with evening meal; lisinopril 2.5 mg tablet 2.5 mg PO DAILY Qty: 90 3RF gabapentin 100 mg capsule 100 mg PO TID (DME) Accu-Chek Rafaela Plus test strp Strip See Dose Instructions .ROUTE .MEDSUPPLY Qty: 200 3RF Dose Instruction: As directed Rx Instructions: test twice daily simvastatin 20 mg tablet 20 mg PO DAILY Qty: 90 3RF (DME) lancets [Accu-Chek Fastclix Lancet Drum] [facility] See Rx Instructions .Route Qty: 300 3RF Rx Instructions: use to check blood sugars up to three times daily venlafaxine 150 mg capsule,extended release 24hr 150 mg PO DAILY multivitamin Tablet 1 tab PO DAILY acetaminophen [Tylenol Extra Strength] 500 mg Tablet 1,000 mg PO DIRECTED PRN (Reason: Pain) lorazepam 0.5 mg tablet 0.25 - 0.5 mg PO BID PRN (Reason: Anxiety) eszopiclone 1 mg tablet 0.5 - 1 mg PO HS PRN (Reason: Insomnia) Probiotic 5 billion cell Capsule, Sprinkle 1 cap PO DAILY Immune Health Support 1 dose PO DAILY Rx Instructions: VITAMIN C, D & ZINC omeprazole 20 mg capsule,delayed release(DR/EC) 20 mg PO DAILY PRN (Reason: HEARTBURN/INDIGESTION) Discharge Orders: Discharge Order (Routine); Ordered 09/17/23 Ordered By: Silvio Leong Admission Data Admit Date/Time: 09/13/23 14:42 Attending Provider: Silvio Leong Admit Provider: Grady Garzon Primary Care Provider: Frankie Solomon Other Providers: Grady Garzon; Maycol Davies Jr Coding Level of Care Code 90469 INP/OBS DISCH >30 MIN Diagnoses Bloody diarrhea R19.7 Colitis K52.9 Anxiety disorder F41.9 GERD (gastroesophageal reflux disease) K21.9 Type 2 diabetes mellitus E11.9 Essential tremor G25.0 Depression F32.9 Hyperlipidemia E78.5 Hypertension I10
[2023-09-17 15:56] LABS: Adenovirus F 40/41 PCR Not Detected (NotDetected); Astrovirus PCR Not Detected (NotDetected); Campylobacter PCR Not Detected (NotDetected); Cryptosporidium PCR Not Detected (NotDetected); Cyclospora cayetanensis PCR Not Detected (NotDetected); Entamoeba histolytica PCR Not Detected (NotDetected); Enteroaggregative E.coli(EAEC) Not Detected (NotDetected); Enteropathogenic E.coli (EPEC) Not Detected (NotDetected); Enterotoxigenic E.coli (ETEC) Not Detected (NotDetected); Giardia lamblia PCR Not Detected (NotDetected); Norovirus GI/GII PCR Not Detected (NotDetected); Plesiomonas shigelloides PCR Not Detected (NotDetected); Rotavirus A PCR Not Detected (NotDetected); Salmonella PCR Not Detected (NotDetected); Sapovirus PCR Not Detected (NotDetected); Shiga-like Toxin E.coli (STEC) Not Detected (NotDetected); Shigella/Enteroinvasive E.coli Not Detected (NotDetected); Vibrio cholerae PCR Not Detected (NotDetected); Vibrio species PCR Not Detected (NotDetected); Yersinia enterocolitica PCR Not Detected (NotDetected)
[2023-09-17 15:58] VITALS: PULSE 82
--- NOTE | 2023-09-17 17:40 | Communication Note ---
Date of Service: September 17, 2023 Time: 1737 hrs. To whom it may concern, Claire Hunt DOC: 1935 was admitted to [facility] from 09/11/2023 until 09/17/2023. Please excuse Ms. Hunt from missed flights by air during that time. Due to her acute illness she required hospitalization and was not appropriate for outpatient management or air travel during that time. Sincerely, Dr. Leong [facility]
== END 2023-09-17 17:54 | disposition home or self-care (01) | DRG 394 ==
LOC: SUATTDRO → 2W 16:51 → ED 16:51 → SUATTDRO 22:15 → 2W 09-12 00:04 → SUATTDRO 09-13 14:42 → 3E 09-15 18:18
DX: K21.9 Gastro-esophageal reflux disease without esophagitis; F32.A Depression, unspecified; M81.0 Age-related osteoporosis without current pathological fracture; F41.9 Anxiety disorder, unspecified; E78.5 Hyperlipidemia, unspecified; I10 Essential (primary) hypertension; K55.9 Vascular disorder of intestine, unspecified; E11.9 Type 2 diabetes mellitus without complications; K92.1 Melena; G25.0 Essential tremor